=== PATIENT | female | born 1935 | race Caucasian/White ===

== ENCOUNTER 2020-03-09 12:46 | Outpatient (CLI) | payer MEDICARE, OTHER, SELFPAY ==
--- NOTE | 2020-03-09 13:10 | MM_ITS ---
WS: [id number] BILATERAL SCREENING DIGITAL MAMMOGRAM WITH CAD HISTORY: SCREENING COMPARISON: 01/29/2019 and 01/23/2018 Bilateral CC and MLO views submitted. Computer aided detection analyzed. Breast composition: There are scattered areas of fibroglandular density. No suspicious masses, microc alcifications or architectural distortion. Benign vascular calcifications in each breast. MM/[id number] IMPRESSION: BI-RADS: 2-Benign FOLLOW UP: 1 Year Follow-up
== END 2020-03-09 12:47 | disposition home or self-care (01) ==
PROVIDERS: PCP Family Medicine; Visit Provider Family Medicine
DX: Z12.31 Encounter for screening mammogram for malignant neoplasm of breast (principal)
CPT/HCPCS: 77067

== ENCOUNTER → 2020-07-13 10:54 | Outpatient (BNVA) | payer MEDICARE, OTHER, SELFPAY | PROVIDERS: PCP Family Medicine; Visit Provider Specialist | DX: M17.11 Unilateral primary osteoarthritis, right knee (principal); M25.551 Pain in right hip; M25.561 Pain in right knee; Z96.641 Presence of right artificial hip joint | CPT/HCPCS: 73502; 73560; 73565 ==

== ENCOUNTER 2021-03-10 08:19 | Outpatient (CLI) | payer MEDICARE, OTHER, SELFPAY ==
--- NOTE | 2021-03-10 08:28 | MM_ITS ---
WS: [id number] BILATERAL DIGITAL SCREENING MAMMOGRAPHY WITH CAD CLINICAL INFORMATION: SCREENING HISTORY: Screening mammogram. No current complaints. COMPARISON: March 09, 2020 TECHNIQUE: Bilateral CC and MLO views. FINDINGS: Scattered fibroglandular densities bilaterally. No suspicious focal mass, asymmetry, calcifications, or architectural distortion. No evidence of malignancy. Vascular calcification. Punctate calcificatio n. MM/[id number] IMPRESSION: BI-RADS: 2-Benign FOLLOW UP: 1 Year Follow-up Recommend return to annual screening mammography.
== END 2021-03-10 08:20 | disposition home or self-care (01) ==
LOC: RADSHAW 08:26
PROVIDERS: PCP Family Medicine; Visit Provider Family Medicine
DX: Z12.31 Encounter for screening mammogram for malignant neoplasm of breast (principal)
CPT/HCPCS: 77067

== ENCOUNTER → 2021-12-30 08:15 | Outpatient (BNVA) | payer MEDICARE, OTHER, SELFPAY | PROVIDERS: PCP Family Medicine; Visit Provider Specialist | DX: Z96.641 Presence of right artificial hip joint (principal); W18.30XA Fall on same level, unspecified, initial encounter; M17.11 Unilateral primary osteoarthritis, right knee | CPT/HCPCS: 20610; 73502; 99213; J1100; J2795; J3301 ==

== ENCOUNTER 2022-03-14 12:07 | Outpatient (CLI) | payer MEDICARE, OTHER, SELFPAY ==
--- NOTE | 2022-03-14 12:53 | MM_ITS ---
WS: [id number] BILATERAL 2-D DIGITAL SCREENING MAMMOGRAPHY WITH CAD CLINICAL INFORMATION: SCREENING HISTORY: Screening mammogram. No current complaints. COMPARISON: March 10, 2021 TECHNIQUE: Bilateral CC and MLO views. FINDINGS: Scattered fibroglandular densities bilaterally. No suspicious focal mass, asymmetry, calcifications, or architectural distortion. No evidence of malignancy. Vascular calcifications. A few incidental pun ctate calcifications. MM/[id number] IMPRESSION: BI-RADS: 2-Benign FOLLOW UP: 1 Year Follow-up Recommend return to annual screening mammography.
== END 2022-03-14 12:08 | disposition home or self-care (01) ==
PROVIDERS: PCP Family Medicine; Visit Provider Family Medicine
DX: Z12.31 Encounter for screening mammogram for malignant neoplasm of breast (principal)
CPT/HCPCS: 77063; 77067

== ENCOUNTER → 2022-03-31 10:31 | Outpatient (BNVA) | payer MEDICARE, OTHER, SELFPAY | PROVIDERS: PCP Family Medicine; Visit Provider Specialist | DX: M17.11 Unilateral primary osteoarthritis, right knee (principal); Z71.89 Other specified counseling | CPT/HCPCS: 20610; J1100; J2795; J3301 ==

== ENCOUNTER 2022-05-25 21:42 | Inpatient (IN) | payer MEDICARE, OTHER, SELFPAY ==
--- NOTE | 2022-05-25 21:43 | ED_ITS ---
HPI - Fall General: Chief Complaint: Fall Stated Complaint: FALL Time Seen by Provider: 05/25/22 21:43 History of Present Illness: 87-year-old lady presenting from home due to fall. She reports tripping and hitting her left arm on a microwave and then falling to the ground with head strike and left-sided pain. Unable to ambulate after. No LOC or prolonged downtime. No loss of consciousness. Patient is not on anticoagulation. Pain is sharp and aching. Moderate to severe intensity and worse with movement. No other specific changes in health, exacerbating, or alleviating factors identified. Onset (ago): minute(s) Fall from: standing Place fall occurred: home Loss of consciousness: None Prolonged down time: no Symptoms prior to fall: none Context: tripped/slipped Severity: moderate Quality: sharp and aching Associated symptoms-after fall: Reports difficulty walking and other Review of Systems General: Reports: 10 or more systems reviewed and unremarkable except in HPI and below Neuro: Reports: difficulty walking PFSH ED PFSH: Medical History (Updated 05/31/22 @ 00:00 by KATHLEEN Parish) Appendicitis Closed displaced fracture of left femoral neck Fall from ground level Hypertension Hypokalemia Leg edema, left Primary osteoarthritis of right knee Skin tear Thyroid disease Surgical History (Updated 05/26/22 @ 10:40 by Jeanie Perdomo MD) H/O hysterectomy with oophorectomy History of tonsillectomy and adenoidectomy Status post hip hemiarthroplasty Family History Mother Cancer Father Stroke Social History Smoking and tobacco status: never smoked Alcohol intake: never Physical Exam Const: COMMON NORMALS: alert GENERAL APPEARANCE: cooperative and well developed HENMT: COMMON NORMALS: normocephalic and atraumatic HEAD & SCALP: normocephalic and atraumatic THROAT: posterior oropharynx normal OTHER: No jim signs or raccoon eyes. No hemotympanum. No otorrhea or rhinorrhea. Jaw alignment normal. Dentition baseline. No obvious bony step-offs. No septal hematoma. No evidence of ocular entrapment. Eye: COMMON NORMALS: conjunctivae normal CONJUNCTIVA: Yes conjunctivae normal SCLERA: sclerae normal Neck/C-Spine: COMMON NORMALS: supple GENERAL: Yes trachea midline Chest: OTHER: Sternal region tenderness to palpation. Resp: COMMON NORMALS: clear to auscultation bilaterally EFFORT & INSPECTION: Yes able to speak in complete sentences AUSCULTATION: clear to auscultation bilaterally Cardio: COMMON NORMALS: regular rhythm RATE: tachycardic RHYTHM: regular rhythm GI: COMMON NORMALS: Soft to palpation PALPATION: Yes Soft to palpation, Yes Tenderness to palpation present (GI), No Guarding due to palpation present (GI) and No Rigid due to palpation Extremity: NARRATIVE EXTREMITY EXAM: Left hip tenderness to palpation. Shortened and internally rotated. Tender to palpation. Large irregular skin tear in the left upper extremity. Distal CMS intact x4 GENERAL: Yes normal exam except as noted and No edema Neuro: COMMON NORMALS: moves all extremities SENSORIUM/ORIENTATION: Yes alert and No Orientation impaired Psych: COMMON NORMALS: mental status grossly normal and Normal thought process present THOUGHT PROCESS: Normal thought process present Procedures Laceration Laceration 1: Site: upper extremity Side (If applicable): left Size (cm): 6 Description: flap, irregular and other (Skin tear) Skin layer closed with: other (Steri-Strips) Course Vital Signs: Vital signs: Vital Signs Temperature 98.4 F 05/30/22 08:26 Pulse Rate 78 05/30/22 15:06 Respiratory Rate 18 05/30/22 08:26 Blood Pressure 160/79 05/30/22 08:26 Pulse Oximetry 98 05/30/22 15:06 Oxygen Delivery Me thod 05/30/22 09:27 Oxygen Flow Rate 3 05/28/22 22:00 MDM - Fall Medical Decision Making 87-year-old lady presented due to fall with hip pain. Exam as above. Head to toe exam performed. EKG notable for sinus rhythm with mild irregularity, normal axis and intervals, mild nonspecific ST segment abnormalities, no STEMI. No significant hematologic abnormalities, metabolic panel with perhaps mild evidence of dehydration. Given physical exam CT imaging is appropriate. CT head negative for acute intracranial hemorrhage or mass, negative cervical spine CT for traumatic injury. CT chest abdomen pelvis with chronic T11 fracture and a femoral neck fracture on the left. Incidental findings discussed with patient. Skin tear repaired with Steri-Strips after cleaning, skin layers likely nonviable however to find some degree of protection. Dressing applied. Patient treated with analgesia and Tdap updated. Discussed with orthopedics. Most likely etiology of patient's symptoms is left femoral neck fracture. This is closed injury and patient is neurovascularly intact. The results of ED evaluation were discussed with the patient including plan for admission due to requirement for level of care not available if discharged to prevent significant worsening/deterioration. Patient agreeable with plan. Discussed with hospitalist service who was agreeable to admit patient. Medical Records I reviewed the patient's medical records. Lab Data I reviewed the patient's lab results. 05/25/22 22:05 05/25/22 22:05 Radiology Impressions Cervical Spine CT 05/25/22 21:54 IMPRESSION: No acute fracture or subluxations. Chest/Abdomen/Pelvis CT 05/25/22 21:54 IMPRESSION: 1. No significant chest findings. 2. Chronic T11 fracture IMPRESSION: 1. Acute or recent left femoral neck fracture. 2. Bilateral adrenal adenomas. 3. Other chronic findings as described. COMMENTS: Consistent with the [employer]'s Incidental Findings Committee white paper (J Am Danyelle Radiol 2018): Any incidental renal lesion less than 1 cm or classified as too small to characterize, or any incidental cystic renal lesion characterized as simple-appearing, is likely benign. No follow-up imaging is recommended for these lesions per consensus recommendations based on imaging criteria. Head CT 05/25/22 21:54 IMPRESSION: No acute intracranial pathology. Hip/Pelvis X-Ray 05/25/22 21:54 IMPRESSION: 1. Left hip basicervical fracture with impaction. 2. Scattered vascular calcifications. Humerus X-Ray 05/25/22 21:54 IMPRESSION: 1. Negative for fracture or dislocation. 2. Severe glenohumeral joint osteoarthritis. Hip X-Ray 05/26/22 15:38 IMPRESSION: Expected postoperative appearance of the left hip. No apparent complications. Laboratory Results WBC 6.9 10^3/uL (4.0-10.0) 05/25/22 22:05 RBC 4.00 10^6/uL (4.1-5.3) L 05/25/22 22:05 Hgb 12.1 g/dL (11.5-15.3) 05/25/22 22:05 Hct 38.3 % (37.0-47.0) 05/25/22 22:05 MCV 95.8 fl (81-99) 05/25/22 22:05 MCH 30.3 pg (28.0-34.0) 05/25/22 22:05 MCHC 31.6 g/dL (30.0-36.0) 05/25/22 22:05 RDW 13.2 % (12.1-15.1) 05/25/22 22:05 Plt Count 272 10^3/cmm (130-400) 05/25/22 22:05 MPV 9.4 fL (7.4-10.4) 05/25/22 22:05 Neut % (Auto) 62.1 % 05/25/22 22:05 Lymph % (Auto) 28.3 % 05/25/22 22:05 Jack % (Auto) 6.8 % 05/25/22 22:05 Eos % (Auto) 1.0 % 05/25/22 22:05 Baso % (Auto) 0.6 % 05/25/22 22:05 Neut # (Auto) 4.29 10^3/uL (1.8-7.7) 05/25/22 22:05 Lymph # (Auto) 2.0 10^3/uL (0.8-4.8) 05/25/22 22:05 Jack # (Auto) 0.5 10^3/uL (0.2-0.9) 05/25/22 22:05 Eos # (Auto) 0.1 10^3/uL (0.0-0.8) 05/25/22 22:05 Baso # (Auto) 0.0 10^3/uL (0.0-0.1) 05/25/22 22:05 Nucleated RBC % (auto) 0 % 05/25/22 22:05 Nucleated RBCs # 0.0 /100WBC 05/25/22 22:05 Sodium 134 mmol/L (136-145) L 05/25/22 22:05 Potassium 4.3 mmol/L (3.5-5.1) 05/25/22 22:05 Chloride 96 mmol/L (98-107) L 05/25/22 22:05 Carbon Dioxide 25 mmol/L (22-29) 05/25/22 22:05 Anion Gap 17.3 (5-19) 05/25/22 22:05 BUN 25 mg/dL (8-23) H 05/25/22 22:05 Creatinine 0.5 mg/dL (0.5-0.9) 05/25/22 22:05 GFR Calculation Not Reportable 05/25/22 22:05 Glucose 151 mg/dL (65-115) H 05/25/22 22:05 Calculated Osmolality 285 mOsm/kg (285-295) 05/25/22 22:05 Calcium 9.2 mg/dL (8.5-10.5) 05/25/22 22:05 Total Bilirubin 0.3 mg/dL (0.15-1.2) 05/25/22 22:05 AST 32 U/L (0-32) 05/25/22 22:05 ALT 18 U/L (0-33) 05/25/22 22:05 Alkaline Phosphatase 84 U/L (35-105) 05/25/22 22:05 Total Protein 7.5 g/dL (6.6-8.7) 05/25/22 22:05 Albumin 4.4 g/dL (3.5-5.2) 05/25/22 22:05 Globulin 3.1 g/dL (1.3-4.6) 05/25/22 22:05 Discharge Plan Discharge Patient Disposition: Admitted As Inpatient Admit Provider: Ella Sullivan Clinical Impression: Closed displaced fracture of left femoral neck, Skin tear Condition: Stable Coding Level of Care Code ED Quality Compliance Consultant for Rosalinda Hernandez
[2022-05-25 21:44] VITALS: BMI 22.2
[2022-05-25 21:49] VITALS: BP 185/81; PULSE 105; RESP 16; TEMP 36.8; O2SAT 95
--- NOTE | 2022-05-25 21:54 | ECG_ITS ---
[facility] Test Date: 2022-05-25 Pat Name: Yulia Richard Department: Room: Gender: Female [facility]: : 1935 Requested By: Gil Webb Order Number: [id number] Celeste MD: Catherine Lopez M.D. Measurements Intervals Clyo Rate: 95 P: 49 DC: 173 QRS: 45 QRSD: 105 T: 30 QT: 329 QTc: 414 Interpretive Statements SINUS RHYTHM WITH OCCASIONAL SUPRAVENTRICULAR PREMATURE COMPLEXES MODERATE ST DEPRESSION [0.05+ mV ST DEPRESSION] Compared to ECG 07/25/2017 13:23:45 ST (T wave) deviation now present Electronically Signed On 05-26-2022 0:13:35 TICK SEWER by Catherine Lopez M.D. [email or web address]
--- NOTE | 2022-05-25 21:54 | CTR_ITS ---
PROCEDURE INFORMATION: Exam: CT Head Without Contrast Exam date and time: 05/25/2022 10:23 PM Age: 87 years old Clinical indication: Injury or trauma; Blunt trauma (contusions or hematomas); Patient HX: Fall at home. Struck head on the floor. C/O head, neck, left chest wall, and left hip pain. ; Additional info: Fall, headstrike TECHNIQUE: Imaging protocol: Computed tomography of the head without contrast. Radiation optimization: All CT scans at this facility use at least one of these dose optimization techniques: automated exposure control; mA and/or kV adjustment per patient size (includes targeted exams where dose is matched to clinical indication); or iterative reconstruction. Other protocol: This patient has received 2 known CTs and 0 known cardiac nuclear medicine studies in the 12 months prior to the current study. COMPARISON: CT Head wo IV contrast* [id number] 2014-10-11 18:29 RADIATION DOSE METRICS: Total DLP (mGy-cm): 1043.38 FINDINGS: Brain: Mild diffuse cerebral volume loss and chronic low attenuation in the white matter. No cerebral hemorrhage, midline shift, mass, or fluid collection. Small chronic left putaminal lacunar infarct. Cerebral ventricles: Cavum septum pellucidum incidentally noted. Paranasal sinuses: Visualized sinuses are unremarkable. No fluid levels. Mastoid air cells: Visualized mastoid air cells are well aerated. Bones/joints: Unremarkable. No acute fracture. Soft tissues: Unremarkable. CT/CT head wo con* [id number] IMPRESSION: No acute intracranial pathology.
--- NOTE | 2022-05-25 21:54 | CTR_ITS ---
PROCEDURE INFORMATION: Exam: CT Chest With Contrast; Diagnostic Exam date and time: 05/25/2022 10:32 PM Age: 87 years old Clinical indication: Injury or trauma; Lower; Blunt trauma (contusions or hematomas); Prior surgery; Surgery type: Right hemanth; Patient HX: Fall at home. Struck head on the floor. C/O head, neck, left chest wall, and left hip pain. ; Additional info: Fall, L chest/abd pain TECHNIQUE: Imaging protocol: Diagnostic computed tomography of the chest with contrast. Radiation optimization: All CT scans at this facility use at least one of these dose optimization techniques: automated exposure control; mA and/or kV adjustment per patient size (includes targeted exams where dose is matched to clinical indication); or iterative reconstruction. Contrast material: OMNI 350; Contrast volume: 75 ml; Contrast route: INTRAVENOUS (IV); Other protocol: This patient has received 2 known CTs and 0 known cardiac nuclear medicine studies in the 12 months prior to the current study. COMPARISON: None relevant RADIATION DOSE METRICS: Total DLP (mGy-cm): 740.5 FINDINGS: Lungs: The lungs are clear and free of effusion. No pneumonia or mass. Overall lung architecture is normal. Incidental linear atelectasis in the right lower lobe. Pleural spaces: Unremarkable. No pneumothorax. No pleural effusion. Heart: The heart is moderately enlarged. Coronary arteries: There is moderate calcified plaque in the coronary arteries. Lymph nodes: Unremarkable. No enlarged lymph nodes. Vasculature: The thoracic aorta is normal in size. Bones/joints: A T11 30% superior endplate fracture is likely chronic as there is no surrounding inflammation. Soft tissues: Unremarkable. PROCEDURE INFORMATION: Exam: CT Abdomen And Pelvis With Contrast Exam date and time: 05/25/2022 10:32 PM Age: 87 years old Clinical indication: Injury or trauma; Lower; Blunt trauma (contusions or hematomas); Prior surgery; Surgery type: Right hemanth; Patient HX: Fall at home. Struck head on the floor. C/O head, neck, left chest wall, and left hip pain. ; Additional info: Fall, L chest/abd pain TECHNIQUE: Imaging protocol: Computed tomography of the abdomen and pelvis with contrast. Radiation optimization: All CT scans at this facility use at least one of these dose optimization techniques: automated exposure control; mA and/or kV adjustment per patient size (includes targeted exams where dose is matched to clinical indication); or iterative reconstruction. Contrast material: OMNI 350; Contrast volume: 75 ml; Contrast route: INTRAVENOUS (IV); Other protocol: This patient has received 2 known CTs and 0 known cardiac nuclear medicine studies in the 12 months prior to the current study. COMPARISON: CR (PELVIS, ) 05/25/2022 10:14 PM RADIATION DOSE METRICS: Total DLP (mGy-cm): 740.5 FINDINGS: Liver: Normal. No mass. Gallbladder and bile ducts: The gallbladder is surgically absent. Pancreas: Normal. No ductal dilation. Spleen: Normal. No splenomegaly. Adrenal glands: 1.7 cm fatty left adrenal mass is unchanged. Several fatty right adrenal masses are unchanged up to 2.1 cm. Kidneys and ureters: 1.9 cm simple cyst in the right lower renal pole. Stomach and bowel: Unremarkable. No obstruction. No mucosal thickening. Appendix: No evidence of appendicitis. Intraperitoneal space: Unremarkable. No free air. No significant fluid collection. Vasculature: Unremarkable. No abdominal aortic aneurysm. Lymph nodes: Unremarkable. No enlarged lymph nodes. Urinary bladder: Unremarkable as visualized. Reproductive: Unremarkable as visualized. Bones/joints: Acute or recent left femoral neck fracture with angulation. A right total hip arthroplasty is partially visualized but the visualized portion is intact. The ribs and thoracic spine are intact. Chronic healed fractures of the left rami. Soft tissues: Unremarkable. CT/CT chest abdpel w/*[id number] IMPRESSION: 1. No significant chest findings. 2. Chronic T11 fracture IMPRESSION: 1. Acute or recent left femoral neck fracture. 2. Bilateral adrenal adenomas. 3. Other chronic findings as described. COMMENTS: Consistent with the [employer]'s Incidental Findings Committee white paper (J Am Danyelle Radiol 2018): Any incidental renal lesion less than 1 cm or classified as too small to characterize, or any incidental cystic renal lesion characterized as simple-appearing, is likely benign. No follow-up imaging is recommended for these lesions per consensus recommendations based on imaging criteria.
--- NOTE | 2022-05-25 21:54 | XRR_ITS ---
PROCEDURE INFORMATION: Exam: XR Left Hip Exam date and time: 05/25/2022 10:14 PM Age: 87 years old Clinical indication: Hip pain; Left hip; Additional info: Fall, hip pain TECHNIQUE: Imaging protocol: Radiologic exam of the Left hip. Views: 2 or 3 views hip with pelvis when performed. COMPARISON: CR XR pelvis 1-2V* [id number] 07/25/2017 7:00 PM FINDINGS: Bones/joints: Left hip basicervical fracture with impaction. Soft tissues: Unremarkable. Vasculature: Scattered vascular calcifications. XR/XR hip LT 2-3V wo/w pel* [id number] IMPRESSION: 1. Left hip basicervical fracture with impaction. 2. Scattered vascular calcifications.
--- NOTE | 2022-05-25 21:54 | XRR_ITS ---
PROCEDURE INFORMATION: Exam: XR Left Humerus Exam date and time: 05/25/2022 10:12 PM Age: 87 years old Clinical indication: Pain; Upper arm; Left; Additional info: Fall, mid-distal lateral pain TECHNIQUE: Imaging protocol: Radiologic exam of the Left humerus. Views: 2 or more views. COMPARISON: CR XR ribs LT mn 3V w CXR1V [id number] 02/06/2018 2:27 PM FINDINGS: Bones/joints: Severe glenohumeral joint osteoarthritis. Soft tissues: Normal. XR/[place] [id number] IMPRESSION: 1. Negative for fracture or dislocation. 2. Severe glenohumeral joint osteoarthritis.
--- NOTE | 2022-05-25 21:54 | CTR_ITS ---
PROCEDURE INFORMATION: Exam: CT Cervical Spine Without Contrast Exam date and time: 05/25/2022 10:27 PM Age: 87 years old Clinical indication: Injury or trauma; Blunt trauma; Patient HX: Fall at home. Struck head on the floor. C/O head, neck, left chest wall, and left hip pain. TECHNIQUE: Imaging protocol: Computed tomography of the cervical spine without contrast. Radiation optimization: All CT scans at this facility use at least one of these dose optimization techniques: automated exposure control; mA and/or kV adjustment per patient size (includes targeted exams where dose is matched to clinical indication); or iterative reconstruction. Other protocol: This patient has received 2 known CTs and 0 known cardiac nuclear medicine studies in the 12 months prior to the current study. COMPARISON: 1. CT head wo con* [id number] 2022-05-25 22:23 2. CR (UP EXM, ) 2022-05-25 22:12 RADIATION DOSE METRICS: Total DLP (mGy-cm): 255.97 FINDINGS: Bones/joints: Mild cervical degenerative alignment abnormalities with maintained vertebral body heights. No acute fractures. Moderate cervical facet arthropathy. C3-C4 small central disc extrusion. Mild spinal and mild moderate foraminal stenosis. Lungs: Lung apices are normal. Vasculature: Mild carotid atherosclerosis. Soft tissues: Unremarkable. CT/CT cervical spin wo con* [id number] IMPRESSION: No acute fracture or subluxations.
[2022-05-25 22:13] LABS: Basophils % 0.6 %; Eosinophils # 0.1 10^3/uL (0.0-0.8); Hematocrit 38.3 % (37.0-47.0); Hemoglobin 12.1 g/dL (11.5-15.3); Lymphocytes % 28.3 %; Mean Corpuscular HGB Conc 31.6 g/dL (30.0-36.0); Mean Corpuscular Hemoglobin 30.3 pg (28.0-34.0); Mean Corpuscular Volume 95.8 fl (81-99); Mean Platelet Volume 9.4 fL (7.4-10.4); Monocytes # 0.5 10^3/uL (0.2-0.9); Monocytes % 6.8 %; Neutrophils # 4.29 10^3/uL (1.8-7.7); Neutrophils % 62.1 %; Nucleated Red Blood Cells % 0 %; Platelet Count 272 10^3/cmm (130-400); Red Cell Distribution Width 13.2 % (12.1-15.1); White Blood Count 6.9 10^3/uL (4.0-10.0)
[2022-05-25] MEDS: tetanus-dipt-pertussis 0.5 mL SDV IM (22:15)
[2022-05-25 22:16] VITALS: RESP 22; O2SAT 92
[2022-05-25] MEDS: fentaNYL 50 mcg/mL INJ 2mL 25 MCG IVP (22:16)
[2022-05-25 22:29] LABS: Alanine Aminotransferase 18 U/L (0-33); Albumin Level 4.4 g/dL (3.5-5.2); Alkaline Phosphatase 84 U/L (35-105); Blood Urea Nitrogen 25 mg/dL (8-23); Calcium 9.2 mg/dL (8.5-10.5); Carbon Dioxide 25 mmol/L (22-29); Chloride 96 mmol/L (98-107); Globulin 3.1 g/dL (1.3-4.6); Glucose 151 mg/dL (65-115); Osmolality Calculated 285 mOsm/kg (285-295); Sodium 134 mmol/L (136-145); Total Bilirubin 0.3 mg/dL (0.15-1.2); Total Protein 7.5 g/dL (6.6-8.7)
[2022-05-25] MEDS: iohexol 350 mg/mL 500 mL Btl (per mL) IV (22:36)
[2022-05-25 22:45] LABS: Anion Gap 17.3 (5-19); Aspartate Amino Transferase 32 U/L (0-32); Potassium 4.3 mmol/L (3.5-5.1)
[2022-05-25 22:47] VITALS: BP 186/90; PULSE 94; RESP 22; O2SAT 92
[2022-05-25 23:54] VITALS: BP 174/85; PULSE 90; RESP 21; O2SAT 91
[2022-05-26] VITALS (21 sets, daily range): BP systolic 115–180; BP diastolic 65–105; PULSE 64–125; RESP 11–20; TEMP 36.4–37.7; O2SAT 90–100
[2022-05-26] MEDS: fentaNYL 50 mcg/mL INJ 2mL 25 MCG IVP (00:04)
[2022-05-26] MEDS: bacitracin ointment Pkt 1 EACH TOPICAL (00:15)
--- NOTE | 2022-05-26 02:14 | PM.HP ---
Providers/Chief Complaint Admitting Physician: Ella Sullivan MD Primary Care Provider: Dipika Tolbert MD Chief Complaint: FALL History of Present Illness Yulia Richard is a 87 year old female with a past medical history of hypertension, hypothyroidism, presented to the emergency room today with chief complaints of a mechanical fall while turning out her back light at home today. She denies any syncope, chest pain dyspnea or palpitations prior to the event. She had her left arm and also has been unable to walk since then. There is a laceration on the left arm which is currently under dressing from the ER. Hip imaging notes femoral fracture. She denies any recent illness, denies any fever chills abdominal pain nausea vomiting diarrhea. Review of Systems General: Reports: 10 or more systems reviewed and unremarkable except in HPI and below Const: Denies: fever(s), chills or body aches Eyes: Denies: change in vision, blurry vision or photophobia ENMT: Reports: hoarseness; Denies: throat pain, enlarged tonsils, odynophagia or nasal congestion Card: Denies: chest pain, palpitations, irregular heart rhythm, edema, swelling of feet/ankles, lightheadedness, pre-syncope, dyspnea on exertion or orthopnea Resp: Denies: dyspnea, productive cough, non-productive cough, wheezing, stridor, pain on inspiration, change in phlegm color, hemoptysis or chest congestion GI: Denies: abdominal pain, nausea, vomiting, hematemesis, coffee ground emesis, dysphagia, heartburn, diarrhea, constipation, GI cramping, change in stool character, hematochezia or melena : Denies: flank pain, difficulty voiding, dysuria, urinary frequency, urinary urgency, urinary hesitancy or hematuria Musc: Denies: neck pain, back pain, extremity pain, joint swelling, joint warmth or deformity Neuro: Denies: headache(s), numbness in extremities, weakness in extremities, sensory changes, difficulty walking, frequent falls, dizziness, vertigo, behavioral changes, Slurred speech present or seizure-like activity Psych: Denies: anxiety, depression, suicidal ideation or homicidal ideation Endo: Denies: polyuria, polydipsia, tired all the time, cold intolerance or hot flashes Felipe/Lymph: Denies: easy bruising or easy bleeding Medications/Allergies Home Medications Medication Instructions Recorded Confirmed Last Taken Type hydrochlorothiazide 12.5 mg tablet 12.5 mg PO DAILY 07/13/20 03/31/22 Unknown History levothyroxine 50 mcg capsule 50 mcg PO DAILY 07/13/20 03/31/22 Unknown History ghvupdyvwjgs-ddvilnne-rujnjh tablet 1 tab PO DAILY 07/13/20 03/31/22 Unknown History potassium chloride 10 mEq 10 meq PO DAILY 07/13/20 03/31/22 Unknown History capsule,extended release azithromycin 250 mg tablet See Rx Instructions PO .COMPLEX #6 10/14/21 03/31/22 Unknown Rx (Zithromax Z-Keith) tabs Allergies Allergy/AdvReac Type Severity Reaction Status Date / Time Penicillins Allergy ALGY-Rash Verified 03/31/22 10:38 PFSH Acute PFSH: Medical History (Updated 05/26/22 @ 05:38 by Ella Sullivan MD) Appendicitis Hypertension Thyroid disease Surgical History (Updated 05/26/22 @ 05:28 by Ella Sullivan MD) H/O hysterectomy with oophorectomy History of tonsillectomy and adenoidectomy Family History Mother Cancer Father Stroke Social History Smoking and tobacco status: never smoked Alcohol intake: never Vitals/I&O/Wt Last Vital Signs Temp 98.2 F 05/25/22 21:49 Pulse 90 05/25/22 23:54 Resp 21 H 05/25/22 23:54 BP 174/85 05/25/22 23:54 Pulse Ox 91 05/25/22 23:54 O2 Del Method 05/26/22 01:43 Weight last 48 hrs Weight 62.596 kg Physical Exam Narrative: General: No acute distress, AO x3 HEENT: PERRLA, pupils bilaterally equal and reactive, pallors not present Chest: Normal vesicular breath sounds, no added sounds, equal good air entry bilaterally CVS: S1-S2 regular, no murmurs, no tachycardia, no gallops, no rubs Abdomen: Soft, nontender, no organomegaly, bowel sounds present Neuro: No focal deficits, no facial deformity, AO x3, power 5/5 in all limbs EXT: Dressing in place over left arm, unable to move left lower extremity Urinary Catheter Management: Clay: Cath Placed During This Visit: yes Urinary Catheter Date of Insertion: 05/25/22 Urinary Catheter Time of Insertion: 23:20 Data 05/25/22 22:05 05/25/22 22:05 Other Labs: Radiology Impressions Cervical Spine CT 05/25/22 21:54 IMPRESSION: No acute fracture or subluxations. Chest/Abdomen/Pelvis CT 05/25/22 21:54 IMPRESSION: 1. No significant chest findings. 2. Chronic T11 fracture IMPRESSION: 1. Acute or recent left femoral neck fracture. 2. Bilateral adrenal adenomas. 3. Other chronic findings as described. COMMENTS: Consistent with the [employer]'s Incidental Findings Committee white paper (J Am Danyelle Radiol 2018): Any incidental renal lesion less than 1 cm or classified as too small to characterize, or any incidental cystic renal lesion characterized as simple-appearing, is likely benign. No follow-up imaging is recommended for these lesions per consensus recommendations based on imaging criteria. Head CT 05/25/22 21:54 IMPRESSION: No acute intracranial pathology. Hip/Pelvis X-Ray 05/25/22 21:54 IMPRESSION: 1. Left hip basicervical fracture with impaction. 2. Scattered vascular calcifications. Humerus X-Ray 05/25/22 21:54 IMPRESSION: 1. Negative for fracture or dislocation. 2. Severe glenohumeral joint osteoarthritis. Laboratory Results WBC 6.9 10^3/uL (4.0-10.0) 05/25/22 22:05 RBC 4.00 10^6/uL (4.1-5.3) L 05/25/22 22:05 Hgb 12.1 g/dL (11.5-15.3) 05/25/22 22:05 Hct 38.3 % (37.0-47.0) 05/25/22 22:05 MCV 95.8 fl (81-99) 05/25/22 22:05 MCH 30.3 pg (28.0-34.0) 05/25/22 22:05 MCHC 31.6 g/dL (30.0-36.0) 05/25/22 22:05 RDW 13.2 % (12.1-15.1) 05/25/22 22:05 Plt Count 272 10^3/cmm (130-400) 05/25/22 22:05 MPV 9.4 fL (7.4-10.4) 05/25/22 22:05 Neut % (Auto) 62.1 % 05/25/22 22:05 Lymph % (Auto) 28.3 % 05/25/22 22:05 [place] % (Auto) 6.8 % 05/25/22 22:05 Eos % (Auto) 1.0 % 05/25/22 22:05 Baso % (Auto) 0.6 % 05/25/22 22:05 Neut # (Auto) 4.29 10^3/uL (1.8-7.7) 05/25/22 22:05 Lymph # (Auto) 2.0 10^3/uL (0.8-4.8) 05/25/22 22:05 [place] # (Auto) 0.5 10^3/uL (0.2-0.9) 05/25/22 22:05 Eos # (Auto) 0.1 10^3/uL (0.0-0.8) 05/25/22 22:05 Baso # (Auto) 0.0 10^3/uL (0.0-0.1) 05/25/22 22:05 Nucleated RBC % (auto) 0 % 05/25/22 22:05 Nucleated RBCs # 0.0 /100WBC 05/25/22 22:05 Sodium 134 mmol/L (136-145) L 05/25/22 22:05 Potassium 4.3 mmol/L (3.5-5.1) 05/25/22 22:05 Chloride 96 mmol/L (98-107) L 05/25/22 22:05 Carbon Dioxide 25 mmol/L (22-29) 05/25/22 22:05 Anion Gap 17.3 (5-19) 05/25/22 22:05 BUN 25 mg/dL (8-23) H 05/25/22 22:05 Creatinine 0.5 mg/dL (0.5-0.9) 05/25/22 22:05 GFR Calculation Not Reportable 05/25/22 22:05 Glucose 151 mg/dL (65-115) H 05/25/22 22:05 Calculated Osmolality 285 mOsm/kg (285-295) 05/25/22 22:05 Calcium 9.2 mg/dL (8.5-10.5) 05/25/22 22:05 Total Bilirubin 0.3 mg/dL (0.15-1.2) 05/25/22 22:05 AST 32 U/L (0-32) 05/25/22 22:05 ALT 18 U/L (0-33) 05/25/22 22:05 Alkaline Phosphatase 84 U/L (35-105) 05/25/22 22:05 Total Protein 7.5 g/dL (6.6-8.7) 05/25/22 22:05 Albumin 4.4 g/dL (3.5-5.2) 05/25/22 22:05 Globulin 3.1 g/dL (1.3-4.6) 05/25/22 22:05 A&P Assessment and plan (1) Closed displaced fracture of left femoral neck: (2) Skin tear: (3) Hypertension: Plan 87-year-old lady presenting with a mechanical fall today. Left hip basicervical fracture with impaction. Orthopedics has been consulted N.p.o. for possible surgery tomorrow morning. On bedrest until orthopedics assessment. Has been consulted from the ER. Appears to be a mechanical fall. Patient denies any loss of consciousness or head injuries. Local wound care measures over the left arm Continue home medications including hydrochlorothiazide and levothyroxine Attestations Medical Necessity Statement*: Anticipate greater than 2 midnight admission for femoral neck fracture, anticipated surgery, postop care Ortho assessment, therapy assessments. Coding Level of Care Code Acute Code for Chg Fwd Moderate MDM includes risk/complexity, reviewing test results, ordering lab/other test(s), independently interpretating test(s) (not separately recorded) and discussion of management or test(s) w/ other healthcare professional Diagnoses Closed displaced fracture of left femoral neck S72.002A Skin tear Hypertension I10
[2022-05-26] MEDS: morphine 4 mg/mL SDV 1 mL 2 MG IVP ×2 (03:21→07:37)
[2022-05-26] MEDS: sodium chloride 0.9% 1,000 ML 75 ML IV ×2 (03:22→21:15)
[2022-05-26] MEDS: enoxaparin 40 mg/0.4 mL Syringe SUBCUT (03:23)
--- NOTE | 2022-05-26 04:49 | ECG_ITS ---
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 Measurements Intervals [place] Rate: 88 P: 52 DE: 175 QRS: 43 QRSD: 104 T: 43 QT: 352 QTc: 428 Interpretive Statements SINUS RHYTHM POSSIBLE INFERIOR MYOCARDIAL INFARCTION , PROBABLY OLD [30 ms Q WAVE IN II/aVF] Compared to ECG 05/25/2022 22:03:33 Myocardial infarct finding now present ST (T wave) deviation no longer present Electronically Signed On 05-27-2022 8:10:01 SLITTER HELPER by Joi Baca M.D. [id number]
[2022-05-26] MEDS: pantoprazole 40 mg SDV IVP (05:50)
[2022-05-26 06:07] LABS: Troponin(5th) Baseline 19 ng/L (0-10)
--- NOTE | 2022-05-26 07:12 | ECG_ITS ---
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 Measurements Intervals [place] Rate: 82 P: 49 AR: 180 QRS: 34 QRSD: 98 T: 33 QT: 360 QTc: 421 Interpretive Statements SINUS RHYTHM Compared to ECG 05/26/2022 04:52:47 Myocardial infarct finding no longer present Electronically Signed On 05-27-2022 8:14:23 GRINDER OUTSIDE DIAMETER by Joi Baca M.D. [id number]
[2022-05-26 08:07] LABS: Troponin 5 2HR 18.78 ng/L (0-10)
[2022-05-26 08:08] LABS: Troponin 5 2HR Delta -0.22 ABS# (0-10)
[2022-05-26] MEDS: hydroCHLOROthiazide 25 mg Tablet 12.5 MG PO (08:43)
[2022-05-26] MEDS: levothyroxine 50 mcg Tablet PO (08:44)
[2022-05-26] MEDS: pantoprazole DR 40 mg Tablet PO (08:44)
--- NOTE | 2022-05-26 10:38 | P.PN_ITS ---
Subjective Subjective: Patient is awaiting for surgical consultation She is n.p.o. On complain of active pain Patient is stating that she did something stupid and fell She is full code Currently on Doing well Clay catheter in place Patient was asking if Dr. Vega could operate on her I did tell her we will follow-up with on-call surgeon Sodium 134, potassium 4.3, creatinine is normal troponin baseline 19, EKG showi ng sinus rhythm with PVCs Vitals/I&O/Wt Last Vital Signs Temp 98.6 F 05/26/22 08:00 Pulse 84 05/26/22 08:00 Resp 18 05/26/22 08:00 BP 151/76 05/26/22 08:00 Pulse Ox 90 05/26/22 08:00 O2 Del Method 05/26/22 08:00 05/25/22 05/26/22 05/26/22 22:59 06:59 14:59 Intake Total 0 / 0 Output Total 1600 / 1600 Balance -1600 / -1600 Weight last 48 hrs Weight 62.596 kg Physical Exam Narrative: Patient is awake and alert Laying supine Currently on room air Clay catheter in place Abdomen soft S1, S2 No audible stridor or wheezing Urinary Catheter Management: Clay: Cath Placed During This Visit: yes Reason for Continuing Indwelling Catheter: Required Immobilization for Trauma or Surgery or Anesthesia Urinary Catheter Date of Insertion: 05/25/22 Urinary Catheter Time of Insertion: 23:20 Data 05/25/22 22:05 05/25/22 22:05 A&P Assessment and plan (1) Hypertension: (2) Closed displaced fracture of left femoral neck: (3) Skin tear: (4) Fall from ground level: Plan Left hip fracture N.p.o. Pain is under control Clay cath in place EKG showing sinus rhythm with PVCs No severe electrolyte abnormality Continue IV fluids and opiates Follow-up with Dr. Brito today She is hemodynamically stable She is full code We will start levothyroxine after surgery She will need rehab after her surgery Attestations Medical Necessity Statement*: Awaiting surgery Coding Level of Care Code Acute Code for Chg Fwd Diagnoses Hypertension I10 Closed displaced fracture of left femoral neck S72.002A Skin tear Fall from ground level W18.30XA
--- NOTE | 2022-05-26 11:18 | PC.CHAP ---
Pastoral Care Encounter/Spiritual Assessment Type of Contact [x] Declined life scientists visit [] Patient/Family/Request visit [] Outpatient visit [] Follow-up visit [] Physician referral [] Code/Alert [] Routine visit [] Staff referral [] Actively dying [] Patient sleeping [] Family support [] [] Out of room [] Palliative care [] [] Receiving care in room [] Pre-surgical visit [] Trauma [] Long length of stay [] ICU visit [] Other: Relational/Emotional Strength [] Patient feels connected with others/family/visitors/staff [] Distress [] Loneliness/isolation [] Abandonment Spirituality of Patient [] Person of Irma [] Attends Druze of their Irma [] Believes in Prayer [] Reads Bible or Confucianist materials [] There are Spiritual issues to be addressed Die Keeper Interventions [] Prayer [] Active listening [] Non-anxious presence [] Spiritual/emotional support [] Crisis/trauma care [] Spiritual counseling [] Bereavement support [] Provided bereavement packet [] Provided Bible/devotional materials [] Provided toy/stuffed animal, coloring book to patient or family member [] Provided Communion [] Anointing/[place] [] Salvation [] Completed spiritual assessment [] Other: Impact on Illness or Injury [] Angry [ ] Fearful [] Anxious [] Often cries [] Exhaustion [ ] Unable to work [] Unable to attend baptist [] Unable to walk/stand [] Unable to read [] Unable to drive [] Unable to eat/drink [] Unable to sleep [] Unable to be with family [] Patient intubated [] Other: Summary unable to communicate health with staff Time spent with patient 5 mins
[2022-05-26 11:38] LABS: Troponin 5 6HR 19.57 ng/L (0-10); Troponin 5 6HR Delta 0.57 ng/L (0-12)
--- NOTE | 2022-05-26 11:46 | ECG_ITS ---
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 Measurements Intervals [place] Rate: 85 P: 41 AL: 177 QRS: 38 QRSD: 99 T: 37 QT: 345 QTc: 410 Interpretive Statements SINUS RHYTHM Compared to ECG 05/26/2022 09:32:48 No significant changes Electronically Signed On 05-27-2022 8:13:34 PERSONAL SECURITY SPECIALIST by Joi Baca M.D. [id number]
--- NOTE | 2022-05-26 12:15 | ANES.PREANE2 ---
Pre-Anesthetic Assessment Height/Weight: Height 1.68 m Weight 62.596 kg Temp Pulse Resp BP Pulse Ox O2 Del Method 99.9 F H 90 18 164/75 93 05/26/22 12:06 05/26/22 12:06 05/26/22 12:06 05/26/22 12:06 05/26/22 12:06 05/26/22 12:06 Preop Diagnosis: Left bipolar hip Operation Date: 05/26/22 12:30 Proposed Procedures p Hemiarthroplasty Hip(Left) - Christopher Ba MD Familial anesthetic complications: None Was Beta Ilan taken within 24 hours: N/A Was Clonidine taken within 24 hours: N/A Last intake: Intake Last Liquid Date 05/25/22 Last Liquid Time 23:00 Last Solid Date 05/25/22 Last Solid Time 15:30 Social No alcohol and No tobacco Exam alert, oriented x 3, clear to auscultation bilaterally and regular rate & rhythm Airway Mallampati: Class II CV/HEM Hypertension Metabolic Thyroid Disease Anesthetic Plan ASA status: 3 Anesthesia: General Risk of > 500 ml blood loss (7ml/kg in children): No Other Pertinent Information Patient declining spinal block Medications/Allergies Home Medications Medication Instructions Recorded Confirmed Last Taken Type hydrochlorothiazide 12.5 mg tablet 12.5 mg PO DAILY@07/13/20 05/26/22 Unknown History potassium chloride 10 mEq 10 meq PO DAILY@92907/13/20 05/26/22 Unknown History capsule,extended release levothyroxine 50 mcg tablet 50 mcg PO DAILY@05/26/22 05/26/22 Unknown History multivit with 1 tab PO DAILY@05/26/22 05/26/22 Unknown History gagvvycf-jtcw-UL-lutein 8 mg iron-400 mcg-300 mcg tablet (Centrum Silver Women) Allergies Allergy/AdvReac Type Severity Reaction Status Date / Time Penicillins Allergy ALGY-Rash Verified 05/26/22 08:48 Current Medications Generic Name Dose Route Start Last Admin Trade Name Freq PRN Reason Stop Dose Admin Enoxaparin Sodium 40 mg 05/26/22 02:15 05/26/22 03:23 Enoxaparin 40 Mg/0.4 Ml Syringe SUBCUT 40 mg Q24H CASE Administration Hydrochlorothiazide 12.5 mg 05/26/22 09:00 05/26/22 08:43 Hydrochlorothiazide 25 Mg Tablet PO 12.5 mg DAILY CASE Administration Sodium Chloride 1,000 mls @ 75 mls/hr 05/26/22 02:15 05/26/22 03:22 Sodium Chloride 0.9% IV 75 mls/hr .[id number] CASE Administration Levothyroxine Sodium 50 mcg 05/26/22 09:00 05/26/22 08:44 Levothyroxine 50 Mcg Tablet PO 50 mcg DAILY CASE Administration Morphine Sulfate 2 mg 05/26/22 02:12 05/26/22 07:37 Morphine 4 Mg/Ml Sdv 1 Ml IVP 2 mg Q4H PRN Administration SEVERE PAIN Pantoprazole Sodium 40 mg 05/26/22 09:00 05/26/22 08:[address] 40 Mg Tablet PO 40 mg DAILY CASE Administration PFSH Anesthesia Medical History (Updated 05/26/22 @ 10:40 by Jeanie Perdomo MD) Appendicitis Hypertension Primary osteoarthritis of right knee Thyroid disease Surgical History (Updated 05/26/22 @ 10:40 by Jeanie Perdomo MD) H/O hysterectomy with oophorectomy History of tonsillectomy and adenoidectomy Status post hip hemiarthroplasty Family History Mother Cancer Father Stroke Social History Smoking and tobacco status: never smoked Alcohol intake: never Data Anesthesia 05/25/22 22:05 05/25/22 22:05 Short CBC 05/25/22 Range/Units 22:05 WBC 6.9 (4.0-10.0) 10^3/uL Hgb 12.1 (11.5-15.3) g/dL Hct 38.3 (37.0-47.0) % MCV 95.8 (81-99) fl Plt Count 272 (130-400) 10^3/cmm Neut % (Auto) 62.1 % Neut # (Auto) 4.29 (1.8-7.7) 10^3/uL BMP 05/25/22 22:05 Sodium 134 L Potassium 4.3 Chloride 96 L Carbon Dioxide 25 BUN 25 H Creatinine 0.5 Glucose 151 H Calcium 9.2 Cardiac Enzymes 05/26/22 05/26/2205/26/23 Range/Units 05:43 07:40 11:08 Troponin T Baseline 19 H (0-10) ng/L Troponin T 120 Minute 18.78 H (0-10) ng/L Delta Troponin T -0.22 L (0-10) ABS# Troponin T Hi Sens 6Hr 19.57 H (0-10) ng/L Troponin T Hi Sens 6Hr Delta 0.57 (0-12) ng/L Liver Function 05/25/22 Range/Units 22:05 Total Bilirubin 0.3 (0.15-1.2) mg/dL AST 32 (0-32) U/L ALT 18 (0-33) U/L Alkaline Phosphatase 84 (35-105) U/L Albumin 4.4 (3.5-5.2) g/dL Cardiac Studies: No Data to Display
[2022-05-26] MEDS: sodium chloride 0.9% 1,000 ML 30 ML IV (12:25)
--- NOTE | 2022-05-26 13:17 | PC.NURSE ---
surgery Pt taken down to surgery in her bed.
--- NOTE | 2022-05-26 13:27 | P.CONIM_ITS ---
Providers/Reason For Consult Consulting Physician/Specialty*: Christopher Ba MD; orthopedic surgery Reason for Consult*: Left femoral neck fracture Attending Physician: Jeanie Perdomo MD Primary Care Provider: Dipika Tolbert MD History of Present Illness History of Present Illness Yulia Richard is a 87 year old female sustained a mechanical fallwhile turning off her back porch light at home. She describes immediate pain in her left hip and inability to bear weight. She was seen in our emergency room radiographs revealed a left femoral neck fracture. She is admitted to medicine has been cleared for surgery. Medications/Allergies Home Medications Medication Instructions Recorded Confirmed Last Taken Type hydrochlorothiazide 12.5 mg tablet 12.5 mg PO DAILY@07/13/20 05/26/22 Unknown History potassium chloride 10 mEq 10 meq PO DAILY@92907/13/20 05/26/22 Unknown History capsule,extended release levothyroxine 50 mcg tablet 50 mcg PO DAILY@05/26/22 05/26/22 Unknown History multivit with 1 tab PO DAILY@05/26/22 05/26/22 Unknown History shzcbmby-tldw-PJ-lutein 8 mg iron-400 mcg-300 mcg tablet (Centrum Silver Women) Allergies Allergy/AdvReac Type Severity Reaction Status Date / Time Penicillins Allergy ALGY-Rash Verified 05/26/22 08:48 Current Medications Generic Name Dose Route Start Last Admin Trade Name Freq PRN Reason Stop Dose Admin Enoxaparin Sodium 40 mg 05/26/22 02:15 05/26/22 03:23 Enoxaparin 40 Mg/0.4 Ml Syringe SUBCUT 40 mg Q24H CASE Administration Hydrochlorothiazide 12.5 mg 05/26/22 09:00 05/26/22 08:43 Hydrochlorothiazide 25 Mg Tablet PO 12.5 mg DAILY CASE Administration Sodium Chloride 1,000 mls @ 75 mls/hr 05/26/22 02:15 05/26/22 03:22 Sodium Chloride 0.9% IV 75 mls/hr .[id number] CASE Administration Sodium Chloride 1,000 mls @ 30 mls/hr 05/26/22 12:15 05/26/22 12:25 Sodium Chloride 0.9% IV 05/27/22 12:14 30 mls/hr .Q24H CASE Administration Levothyroxine Sodium 50 mcg 05/26/22 09:00 05/26/22 08:44 Levothyroxine 50 Mcg Tablet PO 50 mcg DAILY CASE Administration Morphine Sulfate 2 mg 05/26/22 02:12 05/26/22 07:37 Morphine 4 Mg/Ml Sdv 1 Ml IVP 2 mg Q4H PRN Administration SEVERE PAIN Pantoprazole Sodium 40 mg 05/26/22 09:00 05/26/22 08:[address] 40 Mg Tablet PO 40 mg DAILY CASE Administration PFSH Acute PFSH: Medical History (Updated 05/26/22 @ 10:40 by Jeanie Perdomo MD) Appendicitis Hypertension Primary osteoarthritis of right knee Thyroid disease Surgical History (Updated 05/26/22 @ 10:40 by Jeanie Perdomo MD) H/O hysterectomy with oophorectomy History of tonsillectomy and adenoidectomy Status post hip hemiarthroplasty Family History Mother Cancer Father Stroke Social History Smoking and tobacco status: never smoked Alcohol intake: never Vitals/I&O/Wt Last Vital Signs Temp 99.9 F H 05/26/22 12:06 Pulse 90 05/26/22 12:06 Resp 18 05/26/22 12:06 BP 164/75 05/26/22 12:06 Pulse Ox 93 05/26/22 12:06 O2 Del Method 05/26/22 12:06 05/25/22 05/26/22 05/26/22 22:59 06:59 14:59 Intake Total 0 / 0 Output Total 1600 / 1600 Balance -1600 / -1600 Weight last 48 hrs Weight 138 lb Physical Exam Narrative: Thin elderly female. She has clear shortening and external rotation of the left hip. She has pain with motion of the left hip. Palpable left dorsalis pedis pulse. Will flex extend her toes and her ankles without any motor deficits Sensation is intact in the left foot. Dressing is present on the left arm. Urinary Catheter Management: Clay: Cath Placed During This Visit: yes Reason for Continuing Indwelling Catheter: Required Immobilization for Trauma or Surgery or Anesthesia Urinary Catheter Date of Insertion: 05/25/22 Urinary Catheter Time of Insertion: 23:20 Data 05/25/22 22:05 02/08/23 22:05 Xray Ortho: My impression: Radiograph of the left hip are reviewed revealing a displaced basicervical left femoral neck fracture. A&P Assessment and plan (1) Closed displaced fracture of left femoral neck: I discussed options with the patientt.. I told them possible treatments for displaced femoral neck fracture would include nonoperative treatment, open reduction internal fixation, or hemiarthroplasty. I told them without treatment the patient would experience ongoing of pain that would limit mobility. This would require pain medications and place her at medical risks due to prolonged periods of bed rest. I discussed the possibility of open reduction internal fixation with pins. I warned them that for displaced fractures of the risk of nonunion and malunion is exceptionally high. In addition there is a high likelihood that the blood applied to the femoral head has been disrupted and that even with successful stabilization of the fracture the femoral head will go on to . I finally discussed the possibility of hemiarthroplasty. I think this would give the patient the greatest chance of being immediately mobilized. I discussed risk of a bleeding and a possible need for blood products. I discussed risk of deep venous thromboses and pulmonary emboli and the need for anticoagulation. I discussed the use of the TXA that may be utilized to diminish blood loss. I discussed risk of component failure and loosening that c ould require revision. I discussed the risk of dislocation and a bipolar arthroplasty which is quite unlikely. After a long discussion of options they agree to hemiarthroplasty of the hip. I told him ultimately the patient will likely require senior care placement. Coding Level of Care Code Acute Code for [facility] Diagnoses Closed displaced fracture of left femoral neck S72.002A
[2022-05-26] MEDS: ceFAZolin 2,000 MG in sodium chloride 0.9% (plus) 50 ML 100 MG IV ×2 (13:47→21:17)
[2022-05-26] MEDS: tranexamic acid 1,000 mg/10mL SDV 1000 MG IV (14:10)
--- NOTE | 2022-05-26 15:35 | P.OP_ITS ---
Operative Report Date of procedure: May 26, 2022 Pre-op diagnosis: Preop Diagnosis Left displaced femoral neck fracture Post-op diagnosis: same Procedure done: Hemiarthroplasty right hip Implants: [place] 1) Accolade cemented stem, size 4 2) 45 bipolar femoral head 3) 28mm/-4 neck length femoral head Pathology: none sent Surgeon: Christopher Ba Anesthesia: General Estimated blood loss (mL): 200 Findings: The patient had the previously described displaced basicervical fracture of the femoral neck Disposition: PACU Procedure: The patient was taken to the operating room and a a general anesthesia was provided by the anesthesia service. They were given 2 g of Ancef and 1 g of tranexamic acid and positioned in the lateral position with the hip exposed. A 10 cm long incision was made over the greater trochanter with a scalpel blade. Dissection was carried down through the fascia chantel to the greater trochanter. The anterior two thirds of gluteus medius and minimus were elevated off the greater trochanter with electrocautery. The capsule was divided T like fashion. The hip was externally rotated and the neck brought up into the wound. An oscillating saw was really used to resect the neck just above the level of the lesser trochanter. The femoral head was removed and the acetabulumt sized to a 45 mm bipolar head. Sequential reaming and broaching of the canal was accomplished up to a size 4. A distal cement restrictor was placed in the canal cleaned with pulsatile lavage and a brush. Pressurized cement was then passed down the canal. A size 4 [place] Accolade cemented stem was cemented into place. A trial reduction with a -4 mm neck provided excellent stability. The final head and neck were placed and the hip reduced. The anterior capsule were reapproximated with 1 Ethibond. The gluteus medius and minimus were repaired t hrough the greater trochanter with 5 Ethibond and reinforced with 1 Ethibond. The fascia chantel was closed with 1 Stratafix. The subcutaneous tissues were closed with 2-0 Stratafix. The skin was closed with a running 4-0 Stratafix. The incision was covered with a Prineo dressing. Sterile Opsitedressings were applied. The patient was placed in abduction pillow and taken recovery room in stable condition.
--- NOTE | 2022-05-26 15:38 | XRR_ITS ---
PROCEDURE INFORMATION: Exam: XR Left Hip Exam date and time: 05/26/2022 4:48 PM Age: 87 years old Clinical indication: Device placement; Other: Left bipolar arthroplasty; Prior surgery; Surgery date: Post-operative (0-2 days) TECHNIQUE: Imaging protocol: Radiologic exam of the Left hip. Views: 1 view hip with pelvis when performed. COMPARISON: CT chest abdpel w/*[id number] 05/25/2022 10:32 PM FINDINGS: Bones/joints: Left hip arthroplasty. Satisfactory alignment. No sign of loosening. No bone erosion. No acute fracture. There are healed fractures of the right pubic rami. Soft tissues: There is trace soft tissue gas lateral to the left femur. Vascular calcification is present. XR/XR hip LT 1V wo/w pel [id number] IMPRESSION: Expected postoperative appearance of the left hip. No apparent complications.
--- NOTE | 2022-05-26 17:20 | ANE.PACU2 ---
Inpatient post-anesthesia follow up: Airway intact: Yes Vital signs: Temperature 97.7 F Pulse Rate 89 Respiratory Rate 18 Blood Pressure 126/93 Pulse Oximetry 90 Oxygen Delivery Me thod Nasal Cannula Oxygen Flow Rate 2 Fraction of Inspir ed Oxygen Hydration adequate: Yes Nausea and vomiting: No Pain level: 1 Mental status: Baseline
[2022-05-26] MEDS: acetaminophen 325 mg Tablet 650 MG PO (18:09)
[2022-05-26] MEDS: sennosides-docusate Tablet 2 TAB PO (18:09)
[2022-05-27] MEDS: enoxaparin 40 mg/0.4 mL Syringe SUBCUT (01:52)
[2022-05-27] MEDS: acetaminophen 325 mg Tablet 650 MG PO ×2 (01:52→10:21)
[2022-05-27 03:57] VITALS: BP 106/54; PULSE 68; RESP 19; TEMP 36.7; O2SAT 97
[2022-05-27] MEDS: ceFAZolin 2,000 MG in sodium chloride 0.9% (plus) 50 ML 100 MG IV ×2 (05:49→12:54)
[2022-05-27 06:00] VITALS: PULSE 71
[2022-05-27 07:11] LABS: Basophils % 0.1 %; Hemoglobin 10.2 g/dL (11.5-15.3); Lymphocytes # 0.5 10^3/uL (0.8-4.8); Lymphocytes % 6.7 %; Mean Corpuscular HGB Conc 32.9 g/dL (30.0-36.0); Mean Corpuscular Hemoglobin 31.2 pg (28.0-34.0); Mean Corpuscular Volume 94.8 fl (81-99); Mean Platelet Volume 9.7 fL (7.4-10.4); Monocytes # 0.5 10^3/uL (0.2-0.9); Monocytes % 7.3 %; Neutrophils # 6.33 10^3/uL (1.8-7.7); Neutrophils % 85.5 %; Nucleated Red Blood Cells % 0 %; Platelet Count 217 10^3/cmm (130-400); Red Blood Count 3.27 10^6/uL (4.1-5.3); Red Cell Distribution Width 13.4 % (12.1-15.1); White Blood Count 7.4 10^3/uL (4.0-10.0)
[2022-05-27 07:32] LABS: Alanine Aminotransferase 22 U/L (0-33); Albumin Level 3.2 g/dL (3.5-5.2); Alkaline Phosphatase 68 U/L (35-105); Aspartate Amino Transferase 37 U/L (0-32); Blood Urea Nitrogen 11 mg/dL (8-23); Calcium 7.8 mg/dL (8.5-10.5); Carbon Dioxide 25 mmol/L (22-29); Chloride 99 mmol/L (98-107); Glucose 111 mg/dL (65-115); Osmolality Calculated 282 mOsm/kg (285-295); Sodium 136 mmol/L (136-145); Total Bilirubin 0.5 mg/dL (0.15-1.2); Total Protein 5.2 g/dL (6.6-8.7)
[2022-05-27 07:34] LABS: Anion Gap 15.3 (5-19); Potassium 3.3 mmol/L (3.5-5.1)
[2022-05-27 07:45] VITALS: BP 144/74; PULSE 70; RESP 17; TEMP 36.9; O2SAT 96
[2022-05-27] MEDS: levothyroxine 50 mcg Tablet PO (08:37)
[2022-05-27] MEDS: sennosides-docusate Tablet 2 TAB PO ×2 (09:49→17:13)
[2022-05-27] MEDS: pantoprazole DR 40 mg Tablet PO (09:50)
[2022-05-27] MEDS: hydroCHLOROthiazide 25 mg Tablet 12.5 MG PO (09:50)
--- NOTE | 2022-05-27 10:34 | PM.PN ---
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, asked RT to wean down oxygen Vitals/I&O/Wt Last Vital Signs Temp 98.5 F 05/27/22 07:45 Pulse 70 05/27/22 07:45 Resp 17 05/27/22 07:45 BP 144/74 05/27/22 07:45 Pulse Ox 96 05/27/22 07:45 O2 Del Method 05/27/22 03:57 O2 Flow Rate 3 05/26/22 20:00 05/26/22 05/27/22 05/27/22 22:59 06:59 14:59 Intake Total 3260 / 3310 410 / 3720 Output Total 1050 / 1050 850 / 1900 550 / 550 Balance 2210 / 2260 -440 / 1820 -550 / -550 Weight last 48 hrs Weight 62.596 kg Physical Exam Narrative: Patient is laying supine No active pain Pleasant and cooperative Currently on 2 L nasal cannula Abdomen soft S1, S2 No audible stridor or wheezing Lower extremity no signs of vascular compromise Clay catheter has been removed Urinary Catheter Management: Clay: Cath Placed During This Visit: yes, but has since been removed by the nurse Reason for Continuing Indwelling Catheter: Decision to DC Catheter Urinary Catheter Date of Insertion: 05/25/22 Urinary Catheter Time of Insertion: 23:20 Date Urinary Catheter Removed: 05/27/22 Time Urinary Catheter Discontinued: 09:10 Data 05/27/22 06:00 05/27/22 06:00 A&P Assessment and plan (1) Hypertension: (2) Closed displaced fracture of left femoral neck: (3) Skin tear: (4) Fall from ground level: (5) Hypokalemia: Plan Postop day 1 Estimated blood loss 200 mL Hemiarthroplasty right hip Continue PT evaluation Patient wants to go to [facility] for rehab 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 manager updated Clay catheter removed Patient is hypertensive adjust antihypertensive regimen Discontinue IV fluids Discontinue Clay catheter Hypoxia perioperative., Wean oxygen to room air patient does not use oxygen at home Full code For pain continue Tylenol for severe pain she does have opioids on board Daily PT Prophylaxis on board Hypokalemia: Repleted She does get hydrochlorothiazide, replenish potassium, Attestations Medical Necessity Statement*: Awaiting placement to rehab Coding Level of Care Code 22910 Diagnoses Hypertension I10 Closed displaced fracture of left femoral neck S72.002A Skin tear Fall from ground level W18.30XA Hypokalemia E87.6
[2022-05-27] MEDS: potassium chloride ER 20 mEq Tablet 40 MEQ PO (11:06)
[2022-05-27] MEDS: multivitamin therapeutic Tablet 1 TAB PO (11:07)
[2022-05-27] MEDS: amlodipine 5 mg Tablet PO (11:30)
[2022-05-27] MEDS: ketorolac 30 mg/mL INJ 15 MG IVP (11:35)
[2022-05-27 14:00] VITALS: PULSE 111
[2022-05-27 15:25] VITALS: BP 126/78; PULSE 80; RESP 19; TEMP 36.4; O2SAT 94
--- NOTE | 2022-05-27 15:51 | PC.OT ---
OT Eval Attempted - Patient did not have pain medicine at time of evaluation so eval was held. Will have a second OT attempt tomorrow.
[2022-05-27 20:00] VITALS: BP 138/81; PULSE 86; RESP 19; TEMP 37.2; O2SAT 92
[2022-05-28] VITALS (9 sets, daily range): BP systolic 102–149; BP diastolic 63–78; PULSE 79–99; RESP 17–19; TEMP 36.7–37.9; O2SAT 92–97
[2022-05-28] MEDS: acetaminophen 325 mg Tablet 650 MG PO ×3 (00:40→18:04)
[2022-05-28] MEDS: enoxaparin 40 mg/0.4 mL Syringe SUBCUT (02:45)
[2022-05-28 05:31] LABS: Anion Gap 10.3 (5-19); Blood Urea Nitrogen 13 mg/dL (8-23); Calcium 7.9 mg/dL (8.5-10.5); Carbon Dioxide 26 mmol/L (22-29); Chloride 101 mmol/L (98-107); Glucose 112 mg/dL (65-115); Osmolality Calculated 279 mOsm/kg (285-295); Potassium 3.3 mmol/L (3.5-5.1); Sodium 134 mmol/L (136-145)
[2022-05-28] MEDS: levothyroxine 50 mcg Tablet PO (08:02)
[2022-05-28] MEDS: amlodipine 5 mg Tablet PO (09:53)
[2022-05-28] MEDS: hydroCHLOROthiazide 25 mg Tablet 12.5 MG PO (09:53)
[2022-05-28] MEDS: sennosides-docusate Tablet 2 TAB PO ×2 (09:53→18:01)
[2022-05-28] MEDS: multivitamin therapeutic Tablet 1 TAB PO (09:54)
[2022-05-28] MEDS: pantoprazole DR 40 mg Tablet PO (09:54)
--- NOTE | 2022-05-28 11:51 | P.PN_ITS ---
Subjective Subjective: No overnight events Potassium replenished Patient is motivated to go to [facility] Vitals/I&O/Wt Last Vital Signs Temp 98.4 F 05/28/22 08:24 Pulse 82 05/28/22 08:40 Resp 18 05/28/22 08:40 BP 132/65 05/28/22 08:24 Pulse Ox 95 05/28/22 08:40 O2 Del Method 05/28/22 08:40 O2 Flow Rate 3 05/26/22 20:00 05/27/22 05/28/22 05/28/22 22:59 06:59 14:59 Intake Total 600 / 2130 480 / 2610 240 / 240 Balance 600 / 1580 480 / 2060 240 / 240 Physical Exam Narrative: Patient is laying supine Eating breakfast Nonfocal neuro exam 1.5 L nasal cannula Abdomen soft Left leg mild edema No vascular compromise No active pain Active chest pain Pleasant cooperative Urinary Catheter Management: Clay: Cath Placed During This Visit: yes, but has since been removed by the nurse Reason for Continuing Indwelling Catheter: Decision to DC Catheter Urinary Catheter Date of Insertion: 05/25/22 Urinary Catheter Time of Insertion: 23:20 Date Urinary Catheter Removed: 05/27/22 Time Urinary Catheter Discontinued: 09:10 Data 05/27/22 06:00 05/28/22 04:02 A&P Assessment and plan (1) Hypokalemia: (2) Hypertension: (3) Closed displaced fracture of left femoral neck: (4) Skin tear: Plan Postop day 2 Patient is doing well Work with PT Awaiting [facility] placement Hypokalemia: Repleted Hypoxia postoperatively wean oxygen to room air DVT prophylaxis on board Hypertension continue regimen Left leg edema No vascular compromise Hemodynamically stable Attestations Medical Necessity Statement*: Continue medical management Coding Level of Care Code 85752 Diagnoses Hypokalemia E87.6 Hypertension I10 Closed displaced fracture of left femoral neck S72.002A Skin tear
--- NOTE | 2022-05-28 12:09 | PC.SOCIAL ---
IMM update Imm updated with patient at bedside. Copy of page 2 provided. Patient verbalized understanding. Copy in chart initialed, dated and timed.
[2022-05-28] MEDS: potassium chloride ER 20 mEq Tablet 40 MEQ PO (13:09)
[2022-05-29] MEDS: enoxaparin 40 mg/0.4 mL Syringe SUBCUT (01:18)
[2022-05-29 06:42] VITALS: BP 152/68; PULSE 88; RESP 18; TEMP 36.7; O2SAT 96
[2022-05-29] MEDS: levothyroxine 50 mcg Tablet PO (07:49)
[2022-05-29 08:04] VITALS: PULSE 84; RESP 18; O2SAT 95
--- NOTE | 2022-05-29 09:33 | P.PN_ITS ---
Subjective Subjective: Patient is awaiting retirement placement No overnight events Pain under control Tolerating her diet Currently on room air Vitals/I&O/Wt Last Vital Signs Temp 98.1 F 05/29/22 06:42 Pulse 84 05/29/22 08:04 Resp 18 05/29/22 08:04 BP 152/68 05/29/22 06:42 Pulse Ox 95 05/29/22 08:04 O2 Del Method 05/29/22 08:04 O2 Flow Rate 3 05/28/22 22:00 05/28/22 05/29/22 05/29/22 22:59 06:59 14:59 Intake Total 480 / 960 Balance 480 / 960 Physical Exam Narrative: Pleasant and cooperative She has been when she could be discharged, she is anticipating to go to [place] I reassured her Nonfocal neuro exam Pain well managed Currently on room air Abdomen soft Endorsing leg cramps Left leg edema S1, S2 Urinary Catheter Management: Clay: Cath Placed During This Visit: yes, but has since been removed by the nurse Reason for Continuing Indwelling Catheter: Decision to DC Catheter Urinary Catheter Date of Insertion: 05/25/22 Urinary Catheter Time of Insertion: 23:20 Date Urinary Catheter Removed: 05/27/22 Time Urinary Catheter Discontinued: 09:10 Data 05/27/22 06:00 05/28/22 04:02 A&P Assessment and plan (1) Hypokalemia: (2) Hypertension: (3) Closed displaced fracture of left femoral neck: (4) Skin tear: (5) Leg edema, left: Plan Hypertension: Added lisinopril Patient is already taking hydrochlorothiazide and amlodipine Hypothyroid continue levothyroxine Status post hip surgery Awaiting retirement placement Patient is having bowel movement every day Continue senna S DVT prophylaxis on board Full code Cardiac diet Continue PT Attestations Medical Necessity Statement*: Discharge likely on Monday to rehab Coding Level of Care Code 86480 Diagnoses Hypokalemia E87.6 Hypertension I10 Closed displaced fracture of left femoral neck S72.002A Skin tear Leg edema, left R60.0
[2022-05-29] MEDS: hydroCHLOROthiazide 25 mg Tablet 12.5 MG PO (10:05)
[2022-05-29] MEDS: pantoprazole DR 40 mg Tablet PO (10:07)
[2022-05-29] MEDS: amlodipine 5 mg Tablet PO (10:08)
[2022-05-29] MEDS: multivitamin therapeutic Tablet 1 TAB PO (10:08)
[2022-05-29 14:00] VITALS: PULSE 88
[2022-05-29 15:00] VITALS: BP 132/60
[2022-05-29 18:27] VITALS: BP 130/70; PULSE 89; RESP 18; TEMP 36.5; O2SAT 94
[2022-05-29 20:49] VITALS: BP 135/54; PULSE 91; RESP 20; TEMP 36.8; O2SAT 95
[2022-05-30 00:58] VITALS: BP 152/54; PULSE 90; RESP 20; TEMP 37.2; O2SAT 96
[2022-05-30] MEDS: enoxaparin 40 mg/0.4 mL Syringe SUBCUT (02:36)
[2022-05-30 05:22] VITALS: BP 149/69; PULSE 83; RESP 20; TEMP 37; O2SAT 95
[2022-05-30 05:40] LABS: Basophils % 0.7 %; Eosinophils # 0.2 10^3/uL (0.0-0.8); Eosinophils % 2.6 %; Hematocrit 29.2 % (37.0-47.0); Hemoglobin 9.2 g/dL (11.5-15.3); Lymphocytes # 1.1 10^3/uL (0.8-4.8); Lymphocytes % 19.8 %; Mean Corpuscular HGB Conc 31.5 g/dL (30.0-36.0); Mean Corpuscular Hemoglobin 30.5 pg (28.0-34.0); Mean Corpuscular Volume 96.7 fl (81-99); Mean Platelet Volume 9.5 fL (7.4-10.4); Monocytes # 0.6 10^3/uL (0.2-0.9); Monocytes % 10.9 %; Neutrophils # 3.71 10^3/uL (1.8-7.7); Neutrophils % 64.9 %; Nucleated Red Blood Cells % 0 %; Platelet Count 245 10^3/cmm (130-400); Red Blood Count 3.02 10^6/uL (4.1-5.3); Red Cell Distribution Width 13.4 % (12.1-15.1); White Blood Count 5.7 10^3/uL (4.0-10.0)
[2022-05-30 06:04] LABS: Anion Gap 12.3 (5-19); Blood Urea Nitrogen 17 mg/dL (8-23); Calcium 8.2 mg/dL (8.5-10.5); Carbon Dioxide 27 mmol/L (22-29); Chloride 101 mmol/L (98-107); Glucose 103 mg/dL (65-115); Osmolality Calculated 286 mOsm/kg (285-295); Potassium 3.3 mmol/L (3.5-5.1); Sodium 137 mmol/L (136-145)
[2022-05-30 08:26] VITALS: BP 160/79; PULSE 78; RESP 18; TEMP 36.9; O2SAT 96
[2022-05-30] MEDS: lisinopril 10 mg Tablet PO (08:55)
[2022-05-30] MEDS: multivitamin therapeutic Tablet 1 TAB PO (08:56)
[2022-05-30] MEDS: amlodipine 5 mg Tablet PO (08:56)
[2022-05-30] MEDS: hydroCHLOROthiazide 25 mg Tablet 12.5 MG PO (08:56)
[2022-05-30] MEDS: pantoprazole DR 40 mg Tablet PO (08:56)
[2022-05-30] MEDS: levothyroxine 50 mcg Tablet PO (08:56)
[2022-05-30] MEDS: sennosides-docusate Tablet 2 TAB PO (08:57)
[2022-05-30 09:27] VITALS: PULSE 78; O2SAT 98
[2022-05-30 10:41] LABS: SARS Covid-2 Antigen negative (Negative)
--- NOTE | 2022-05-30 10:45 | P.DS_ITS ---
Discharge Providers Date of Admission: 05/25/22 23:11 Date of Discharge: May 30, 2022 Attending Provider at Admission: Ella Sullivan MD Attending Provider at Discharge: Jeanie Perdomo MD Primary Care Provider: Dipika Tolbert MD Diagnoses at Discharge Discharge Diagnosis (1) Hypokalemia: Status: Acute (2) Hypertension: Status: Acute (3) Closed displaced fracture of left femoral neck: Status: Acute (4) Skin tear: Status: Acute (5) Leg edema, left: Status: Acute Reason for Visit Reason for Visit: FALL Hospital Course Hospital Course 87-year-old female who presented to the hospital with hip pain, she was diagnosed with hip fracture, Dr. Ba was consulted, status post left hip hemiarthroplasty 05/26, no perioperative complications, patient did very well throughout her hospitalization: She wants to go to [facility], senior case manager was consulted. Clay catheter was removed patient did very well with physical therapy, pain under control no postoperative complications. Patient will get aspirin for DVT prophylaxis Physical Exam Narrative: Very pleasant and cooperative elderly female Abdomen soft Left leg edema slightly better Currently doing well on room air S1, S2 Abdomen soft discharge 15 awake and alert Urinary Catheter Management: Clay: Cath Placed During This Visit: yes, but has since been removed by the nurse Reason for Continuing Indwelling Catheter: Decision to DC Catheter Urinary Catheter Date of Insertion: 05/25/22 Urinary Catheter Time of Insertion: 23:20 Date Urinary Catheter Removed: 05/27/22 Time Urinary Catheter Discontinued: 09:10 Discharge Data Studies Completed and Pending Completed Studies During Hospitalization Category Date Time Status CT cervical spin wo con* [id number] Stat Cat Scan 05/25/22 21:[address] chest abdpel w/*[id number] Stat Cat Scan 05/25/22 21:[address] head wo con* [id number] Stat Cat Scan 05/25/22 21:54 Completed XR hip LT 1V wo/w pel [id number] Routine Exams 05/26/22 15:38 Completed XR hip LT 2-3V wo/w pel* [id number] Stat Exams 05/25/22 21:54 [place] [id number] Stat Exams 05/25/22 21:54 Completed Radiology Impressions Cervical Spine CT 05/25/22 21:54 IMPRESSION: No acute fracture or subluxations. Chest/Abdomen/Pelvis CT 05/25/22 21:54 IMPRESSION: 1. No significant chest findings. 2. Chronic T11 fracture IMPRESSION: 1. Acute or recent left femoral neck fracture. 2. Bilateral adrenal adenomas. 3. Other chronic findings as described. COMMENTS: Consistent with the [employer]'s Incidental Findings Committee white paper (J Am Danyelle Radiol 2018): Any incidental renal lesion less than 1 cm or classified as too small to characterize, or any incidental cystic renal lesion characterized as simple-appearing, is likely benign. No follow-up imaging is recommended for these lesions per consensus recommendations based on imaging criteria. Head CT 05/25/22 21:54 IMPRESSION: No acute intracranial pathology. Hip/Pelvis X-Ray 05/25/22 21:54 IMPRESSION: 1. Left hip basicervical fracture with impaction. 2. Scattered vascular calcifications. Humerus X-Ray 05/25/22 21:54 IMPRESSION: 1. Negative for fracture or dislocation. 2. Severe glenohumeral joint osteoarthritis. Hip X-Ray 05/26/22 15:38 IMPRESSION: Expected postoperative appearance of the left hip. No apparent complications. Laboratory Results WBC 5.7 10^3/uL (4.0-10.0) 05/30/22 05: RBC 3.02 10^6/uL (4.1-5.3) L 05/30/22 05:23 Hgb 9.2 g/dL (11.5-15.3) L 05/30/22 05:23 Hct 29.2 % (37.0-47.0) L 05/30/22 05:23 MCV 96.7 fl (81-99) 05/30/22 05:23 MCH 30.5 pg (28.0-34.0) 05/30/22 05: MCHC 31.5 g/dL (30.0-36.0) 05/30/22 05: RDW 13.4 % (12.1-15.1) 05/30/22 05:23 Plt Count 245 10^3/cmm (130-400) 05/30/22 05:23 MPV 9.5 fL (7.4-10.4) 05/30/22 05: Neut % (Auto) 64.9 % 05/30/22 05:23 Lymph % (Auto) 19.8 % 05/30/22 05:23 [place] % (Auto) 10.9 % 05/30/22 05:23 Eos % (Auto) 2.6 % 05/30/22 05:23 Baso % (Auto) 0.7 % 05/30/22 05:23 Neut # (Auto) 3.71 10^3/uL (1.8-7.7) 05/30/22 05:23 Lymph # (Auto) 1.1 10^3/uL (0.8-4.8) 05/30/22 05:23 [place] # (Auto) 0.6 10^3/uL (0.2-0.9) 05/30/22 05: Eos # (Auto) 0.2 10^3/uL (0.0-0.8) 05/30/22 05: Baso # (Auto) 0.0 10^3/uL (0.0-0.1) 05/30/22 05: Nucleated RBC % (auto) 0 % 05/30/22 05: Nucleated RBCs # 0.0 /100WBC 05/30/22 05:23 Sodium 137 mmol/L (136-145) 05/30/22 05:23 Potassium 3.3 mmol/L (3.5-5.1) L 05/30/22 05:23 Chloride 101 mmol/L (98-107) 05/30/22 05: Carbon Dioxide 27 mmol/L (22-29) 05/30/22 05:23 Anion Gap 12.3 (5-19) 05/30/22 05:23 BUN 17 mg/dL (8-23) 05/30/22 05:23 Creatinine 0.4 mg/dL (0.5-0.9) L 05/30/22 05:23 GFR Calculation Not Reportable 05/30/22 05: Glucose 103 mg/dL (65-115) 05/30/22 05:23 Calculated Osmolality 286 mOsm/kg (285-295) 05/30/22 05:23 Calcium 8.2 mg/dL (8.5-10.5) L 05/30/22 05:23 Total Bilirubin 0.5 mg/dL (0.15-1.2) 02/10/23 06:00 AST 37 U/L (0-32) H 05/27/22 06:00 ALT 22 U/L (0-33) 05/27/22 06:00 Alkaline Phosphatase 68 U/L (35-105) 05/27/22 06:00 Troponin T Baseline 19 ng/L (0-10) H 05/26/22 05:43 Troponin T 120 Minute 18.78 ng/L (0-10) H 05/26/22 07:40 Delta Troponin T -0.22 ABS# (0-10) L 05/26/22 07:40 Troponin T Hi Sens 6Hr 19.57 ng/L (0-10) H 05/26/22 11:08 Troponin T Hi Sens 6Hr Delta 0.57 ng/L (0-12) 05/26/22 11:08 Total Protein 5.2 g/dL (6.6-8.7) L 05/27/22 06:00 Albumin 3.2 g/dL (3.5-5.2) L 05/27/22 06:00 Globulin 2.0 g/dL (1.3-4.6) 05/27/22 06:00 SARS-CoV-2 Ag (Rapid) negative (Negative) 05/30/22 10:08 Vitals Last Vital Signs Temp 98.4 F 05/30/22 08:26 Pulse 78 05/30/22 09:27 Resp 18 05/30/22 08:26 BP 160/79 05/30/22 08:26 Pulse Ox 98 05/30/22 09:27 O2 Del Method 05/30/22 09:27 O2 Flow Rate 3 05/28/22 22:00 Discharge Plan Discharge Patient Disposition: Xfer SNF Condition: Stable Prescriptions: New Stool Softener-Laxative 8.6-50 mg Tablet 2 tab PO BID Qty: 30 0RF amlodipine 5 mg Tablet 5 mg PO DAILY Qty: 30 0RF lisinopril 10 mg Tablet 10 mg PO DAILY Qty: 30 0RF oxycodone 5 mg Tablet 5 mg PO Q4H PRN (Reason: Moderate Pain) Qty: 10 0RF aspirin 325 mg tablet,delayed release (DR/EC) 325 mg PO DAILY Qty: 30 0RF Continued potassium chloride 10 mEq capsule, extended release 10 meq PO DAILY@0930 levothyroxine 50 mcg tablet 50 mcg PO DAILY@07 Centrum Silver Women 8 mg iron-400 mcg-300 mcg Tablet 1 tab PO DAILY@09 Systane Complete bottle 1 drp ophthalmic (eye) TID MDD 3 PRN (Reason: dry eyes) Rx Instructions: 1 drop per eye Discontinued hydrochlorothiazide 12.5 mg tablet 12.5 mg PO DAILY@09 Discharge Orders: Discharge Order (Routine); Ordered 05/30/22 Ordered By: Jeanie Perdomo Referrals: [facility] [Outside] Dipika Tolbert MD [Primary Care Provider] - Patient Instructions: Lisinopril (By mouth) (Prinivil, Zestril), Oxycodone/Acetaminophen (By mouth), Laxative, Stimulant (By mouth) (Dulcolax, EX-Lax, Fleet Bisacodyl,..., Amlodipine (By mouth), Fall Prevention for Older Adults (DC), Chronic Hypertension (DC), Hip Fracture (GEN) Discharge Attestations Time Spent in Discharge Care*: less than 30 min Quality Metrics Clinical Quality Measures [ No reported AMI, CVA or VTE this stay] Coding Level of Care Code Acute Code for Chg Fwd Diagnoses Hypokalemia E87.6 Hypertension I10 Closed displaced fracture of left femoral neck S72.002A Skin tear Leg edema, left R60.0
--- NOTE | 2022-05-30 11:04 | PC.SOCIAL ---
IMM Update pg 2 of IMM updated and reviewed w/ patient. Copy provided and copy dated, initialed and placed in chart.
--- NOTE | 2022-05-30 12:26 | PC.NURSE ---
called report to Sravani Connolly LPN at [facility]
[2022-05-30 15:06] VITALS: PULSE 78; O2SAT 98
== END 2022-05-30 12:45 | disposition skilled nursing facility (03) | DRG 522 ==
LOC: ER 23:11 → MEDSURG 23:42
PROVIDERS: Orthopaedic Surgery; Admitting Provider Student in an Organized Health Care Education/Training Program; Emergency Provider Emergency Medicine; PCP Family Medicine; Visit Provider Internal Medicine
PROC: 0SRS0J9 Replacement of Left Hip Joint, Femoral Surface with Synthetic Substitute, Cemented, Open Approach (ICD-10-PCS; CPT 27125; principal; 2022-05-26 12:30)
DX: S72.092A Other fracture of head and neck of left femur, initial encounter for closed fracture (principal); W18.30XA Fall on same level, unspecified, initial encounter; E87.6 Hypokalemia; I10 Essential (primary) hypertension; E03.9 Hypothyroidism, unspecified; Z88.0 Allergy status to penicillin
CPT/HCPCS: 12002; 36415; 51702; 70450; 71260; 72125; 73060; 73501; 73502; 74177; 80048; 80053; 84484; 85025; 87426; 90471; 90715; 93005; 96372; 96374; 97110; 97116; 97162; 97165; 97530; 97535; 99285; C1776; C9113; J0690; J1100; J1170; J1580; J1650; J1885; J2270; J2405; J2704; J3010; J3490; J7030; Q9967

== ENCOUNTER → 2022-06-14 11:11 | Outpatient (BNVA) | payer MEDICARE, OTHER, SELFPAY | PROVIDERS: PCP Family Medicine; Visit Provider Orthopaedic Surgery | DX: Z96.642 Presence of left artificial hip joint (principal) | CPT/HCPCS: 99024 ==

== ENCOUNTER → 2022-07-21 10:21 | Outpatient (BNVA) | payer OTHER, MEDICARE, SELFPAY | PROVIDERS: PCP Family Medicine; Visit Provider Nurse Practitioner Family | DX: Z96.642 Presence of left artificial hip joint (principal) | CPT/HCPCS: 73502; 99024; 99213 ==

== ENCOUNTER → 2022-08-30 14:02 | Outpatient (BNVA) | payer MEDICARE, OTHER, SELFPAY | PROVIDERS: PCP Family Medicine; Visit Provider Otolaryngology | DX: H61.23 Impacted cerumen, bilateral (principal) | CPT/HCPCS: 69210; 99202 ==

== ENCOUNTER → 2022-10-31 10:45 | Outpatient (BNVA) | payer MEDICARE, OTHER, SELFPAY | PROVIDERS: PCP Family Medicine; Visit Provider Otolaryngology | DX: H61.23 Impacted cerumen, bilateral (principal) | CPT/HCPCS: 69210; 99212 ==

== ENCOUNTER → 2022-11-02 13:23 | Outpatient (BNVA) | payer MEDICARE, OTHER, SELFPAY | PROVIDERS: PCP Family Medicine; Visit Provider Specialist | DX: Z96.642 Presence of left artificial hip joint (principal) | CPT/HCPCS: 73502; 99213 ==

== ENCOUNTER 2022-11-17 05:03 | Inpatient (IN) | payer MEDICARE, OTHER, SELFPAY ==
[2022-11-17] VITALS (7 sets, daily range): BP systolic 135–182; BP diastolic 68–76; PULSE 66–86; RESP 15–18; TEMP 36.6–36.7; O2SAT 96–98; BMI 20.3
--- NOTE | 2022-11-17 05:19 | ED_ITS ---
Documented by User: Sebastián Le MD 11/17/22 05:22 HPI - Fall General: Chief Complaint: Fall Stated Complaint: fall Time Seen by Provider: 11/17/22 05:09 Source: patient Mode of arrival: ambulatory Limitations: no limitations History of Present Illness: 87-year-old female states she went to bed at 8 PM states she got up at 4 AM set up on her bed and was extremely dizzy and fell. She states that she felt like the room was spinning she fell onto her left side she has left hip along with left shoulder pain. She also hit her head and has a headache. She denies loss of consciousness she denies any chest pain. Associated symptoms-after fall: Denies abdominal pain, chest pain, headache(s) or neck pain Review of Systems Const: Denies: fever(s), chills, body aches or change in appetite Eyes: Denies: blurry vision or eye discomfort ENMT: Denies: throat pain or dental pain Card: Denies: chest pain Resp: Denies: dyspnea GI: Denies: abdominal pain, nausea, vomiting or diarrhea Musc: Reports: extremity pain; Denies: neck pain or back pain Skin/Breast: Denies: rash Neuro: Reports: dizziness; Denies: headache(s) PFSH ED PFSH: Medical History Appendicitis Closed displaced fracture of left femoral neck Fall from ground level Hypertension Hypokalemia Leg edema, left Primary osteoarthritis of right knee Skin tear Thyroid disease Surgical History H/O hysterectomy with oophorectomy History of tonsillectomy and adenoidectomy Status post hip hemiarthroplasty Family History Mother Cancer Father Stroke Social History Smoking and tobacco status: never smoked Alcohol intake: never Physical Exam Const: COMMON NORMALS: patient oriented x3 HENMT: COMMON NORMALS: normocephalic; head/scalp not atraumatic (contusion to left forehead) HEAD & SCALP: normocephalic; not atraumatic (contusion to left forehead) Eye: COMMON NORMALS: Equal, round and reactive pupils present and EOMs intact bilaterally PUPIL: Yes Equal, round and reactive pupils present Neck/C-Spine: COMMON NORMALS: full ROM and supple Chest: COMMONS NORMALS: normal inspection of the chest and normal palpation of entire chest wall Resp: COMMON NORMALS: normal respiratory effort, No retractions, No use of accessory muscles and clear to auscultation bilaterally AUSCULTATION: clear to auscultation bilaterally Cardio: COMMON NORMALS: regular rate, regular rhythm and No murmurs present (Cardio) RATE: regular rate RHYTHM: regular rhythm GI: COMMON NORMALS: Normal to inspection, nondistended, normoactive bowel sounds present, Soft to palpation, non-tender and no masses PALPATION: Yes Soft to palpation Extremity: NARRATIVE EXTREMITY EXAM: Tenderness over left hip and left shoulder Neuro: COMMON NORMALS: patient oriented x3, moves all extremities and no focal motor deficits Psych: COMMON NORMALS: mental status grossly normal, Normal thought process present and cooperative THOUGHT PROCESS: Normal thought process present Skin: COMMON NORMALS: no rashes or lesions noted and no wounds GENERAL SKIN EXAM: no rashes or lesions noted Course Vital Signs: Vital signs: Vital Signs Temperature 97.9 F 11/17/22 05:05 Pulse Rate 78 11/17/22 07:07 Respiratory Rate 15 11/17/22 07:07 Blood Pressure 154/73 11/17/22 07:07 Pulse Oximetry 97 11/17/22 07:07 Oxygen Delivery Me thod Room Air 11/17/22 07:07 MDM - Fall Lab Data 11/17/22 05:15 11/17/22 05:[address] 11/17/22 05:22 IMPRESSION: Extracranial superficial soft tissue swelling in the left periorbital/frontal region. No underlying cranial fracture. No acute intracranial abnormality. Hip/Pelvis X-Ray 11/17/22 05:22 IMPRESSION: No acute fracture or dislocation identified. Knee X-Ray 11/17/22 05:22 IMPRESSION: 1. No evidence of acute fracture or dislocation. 2. Osteoarthritic changes. Shoulder X-Ray 11/17/22 05:22 IMPRESSION: 1. No evidence of acute fracture or dislocation. 2. Chronic degenerative changes in the shoulder joint. Cervical Spine CT 11/17/22 05:28 IMPRESSION: 1. No acute fracture or traumatic malalignment identified within the cervical spine. 2. Multilevel degenerative changes in the spine. Head/Neck CTA 11/17/22 05:52 IMPRESSION: No acute intracranial arterial abnormality identified. IMPRESSION: No acute arterial abnormality identified in the neck. REFERENCES: NASCET CRITERIA. The degree of stenosis in the cervical segment of the internal carotid artery is based on NASCET criteria. Normal is no stenosis. Mild is less than 50% stenosis. Moderate is 50-69% stenosis. Severe is 70% to 99% stenosis. Total occlusion is no detectable patent lumen. Laboratory Results WBC 5.6 10^3/uL (4.0-10.0) 11/17/22 05:15 RBC 3.56 10^6/uL (4.1-5.3) L 11/17/22 05:15 Hgb 10.6 g/dL (11.5-15.3) L 11/17/22 05:15 Hct 32.4 % (37.0-47.0) L 11/17/22 05:15 MCV 91.0 fl (81-99) 11/17/22 05:15 MCH 29.8 pg (28.0-34.0) 11/17/22 05:15 MCHC 32.7 g/dL (30.0-36.0) 11/17/22 05:15 RDW 14.7 % (12.1-15.1) 11/17/22 05:15 Plt Count 298 10^3/cmm (130-400) 11/17/22 05:15 MPV 9.2 fL (7.4-10.4) 11/17/22 05:15 Neut % (Auto) 57.9 % 11/17/22 05:15 Lymph % (Auto) 31.1 % 11/17/22 05:15 [place] % (Auto) 7.0 % 11/17/22 05:15 Eos % (Auto) 1.6 % 11/17/22 05:15 Baso % (Auto) 1.1 % 11/17/22 05:15 Neut # (Auto) 3.22 10^3/uL (1.8-7.7) 11/17/22 05:15 Lymph # (Auto) 1.7 10^3/uL (0.8-4.8) 11/17/22 05:15 [place] # (Auto) 0.4 10^3/uL (0.2-0.9) 11/17/22 05:15 Eos # (Auto) 0.1 10^3/uL (0.0-0.8) 11/17/22 05:15 Baso # (Auto) 0.1 10^3/uL (0.0-0.1) 11/17/22 05:15 Nucleated RBC % (auto) 0 % 11/17/22 05:15 Nucleated RBCs # 0.0 /100WBC 11/17/22 05:15 PT 13.00 SECONDS (12.1-14.9) 11/17/22 05:15 INR 0.95 (0.8-1.2) 11/17/22 05:15 Sodium 138 mmol/L (136-145) 11/17/22 05:15 Potassium 4.0 mmol/L (3.5-5.1) 11/17/22 05:15 Chloride 99 mmol/L (98-107) 11/17/22 05:15 Carbon Dioxide 26 mmol/L (22-29) 11/17/22 05:15 Anion Gap 17.0 (5-19) 11/17/22 05:15 BUN 15 mg/dL (8-23) 11/17/22 05:15 Creatinine 0.5 mg/dL (0.5-0.9) 11/17/22 05:15 GFR Calculation Not Reportable 11/17/22 05:15 Glucose 146 mg/dL (65-115) H 11/17/22 05:15 Calculated Osmolality 289 mOsm/kg (285-295) 11/17/22 05:15 Calcium 8.9 mg/dL (8.5-10.5) 11/17/22 05:15 Total Bilirubin 0.3 mg/dL (0.15-1.2) 11/17/22 05:15 AST 20 U/L (0-32) 11/17/22 05:15 ALT 9 U/L (0-33) 11/17/22 05:15 Alkaline Phosphatase 103 U/L (35-105) 11/17/22 05:15 Troponin T Baseline 14 ng/L (0-10) H 11/17/22 05:15 Troponin T 120 Minute 18.62 ng/L (0-10) H 11/17/22 07:08 Delta Troponin T 4.62 ABS# (0-10) 11/17/22 07:08 Total Protein 6.3 g/dL (6.6-8.7) L 11/17/22 05:15 Albumin 3.9 g/dL (3.5-5.2) 11/17/22 05:15 Globulin 2.4 g/dL (1.3-4.6) 11/17/22 05:15 Urine Color Yellow (Yellow) 11/17/22 07:17 Urine Appearance Clear (CLEAR) 11/17/22 07:17 Urine pH 7 (5-7) 11/17/22 07:17 Ur Specific [place] 1.015 (1.005-1.030) 11/17/22 07:17 Urine Protein Neg (Negative) 11/17/22 07:17 Urine Glucose (UA) Norm (Normal) 11/17/22 07:17 Urine Ketones Negative (Negative) 11/17/22 07:17 Urine Blood Neg (Negative) 11/17/22 07:17 Urine Nitrate Negative (Negative) 11/17/22 07:17 Urine Bilirubin Neg (Negative) 11/17/22 07:17 Urine Urobilinogen Norm mg/dL (Negative) 11/17/22 07:17 Ur Leukocyte Esterase Negative (Negative) 11/17/22 07:17 Discharge Plan Discharge Patient Disposition: Placed in Observation Clinical Impression: Elevated troponin I level, Dizziness, Fall Sign Out Sign Out Data: Patient Sign Out occurred on 11/17/22 at 07:02. Patient's care was discussed, and care was transferred from to Suleman Saucedo DO. Coding Level of Care Code ED Job Putter Up And Ticket Preparer for Chg Fwd Documented by User: Suleman Saucedo DO 11/17/22 08:15 HPI - Fall General: Chief Complaint: Fall Stated Complaint: fall Time Seen by Provider: 11/17/22 05:09 [facility] ED PFSH: Medical History Appendicitis Closed displaced fracture of left femoral neck Fall from ground level Hypertension Hypokalemia Leg edema, left Primary osteoarthritis of right knee Skin tear Thyroid disease Surgical History H/O hysterectomy with oophorectomy History of tonsillectomy and adenoidectomy Status post hip hemiarthroplasty Family History Mother Cancer Father Stroke Social History Smoking and tobacco status: never smoked Alcohol intake: never Course Vital Signs: Vital signs: Vital Signs Temperature 97.9 F 11/17/22 05:05 Pulse Rate 78 11/17/22 07:07 Respiratory Rate 15 11/17/22 07:07 Blood Pressure 154/73 11/17/22 07:07 Pulse Oximetry 97 11/17/22 07:07 Oxygen Delivery Me thod Room Air 11/17/22 07:07 MDM - Fall Medical Decision Making Care assumed at change of shift. Patient initially seen by Dr. Le after a fall early hours this morning. She states yesterday was a normal day and she did not have any problems with dizziness [place] to bed around 8 or 8:30 PM after taking her evening medications. 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 This is bilateral. She is also complaining some left hip pain she has bilateral previous arthroplasties both of which appear normal in the x-rays. UA was negative. There is a slight bump in her second troponin although her EKG shows a normal sinus rhythm. She had been at [facility] recently, there in July and discharged home after recovering from a traumatic hip fracture in early May. patient reports severe dizziness even with elevation of the bed to 30 to 40 degrees. She will be left supine. Discussed Dr. Bolton will admit for elevated troponin possible posterior stroke versus labyrinthitis as well as severe generalized weakness. Patient is anticipating needing to go back to the retirement. Medical Records I reviewed the patient's medical records. Lab Data I reviewed the patient's lab results. 11/17/22 05:15 11/17/22 05:[address] 11/17/22 05:22 IMPRESSION: Extracranial superficial soft tissue swelling in the left periorbital/frontal region. No underlying cranial fracture. No acute intracranial abnormality. Hip/Pelvis X-Ray 11/17/22 05:22 IMPRESSION: No acute fracture or dislocation identified. Knee X-Ray 11/17/22 05:22 IMPRESSION: 1. No evidence of acute fracture or dislocation. 2. Osteoarthritic changes. Shoulder X-Ray 11/17/22 05:22 IMPRESSION: 1. No evidence of acute fracture or dislocation. 2. Chronic degenerative changes in the shoulder joint. Cervical Spine CT 11/17/22 05:28 IMPRESSION: 1. No acute fracture or traumatic malalignment identified within the cervical spine. 2. Multilevel degenerative changes in the spine. Head/Neck CTA 11/17/22 05:52 IMPRESSION: No acute intracranial arterial abnormality identified. IMPRESSION: No acute arterial abnormality identified in the neck. REFERENCES: NASCET CRITERIA. The degree of stenosis in the cervical segment of the internal carotid artery is based on NASCET criteria. Normal is no stenosis. Mild is less than 50% stenosis. Moderate is 50-69% stenosis. Severe is 70% to 99% stenosis. Total occlusion is no detectable patent lumen. Laboratory Results WBC 5.6 10^3/uL (4.0-10.0) 11/17/22 05:15 RBC 3.56 10^6/uL (4.1-5.3) L 11/17/22 05:15 Hgb 10.6 g/dL (11.5-15.3) L 11/17/22 05:15 Hct 32.4 % (37.0-47.0) L 11/17/22 05:15 MCV 91.0 fl (81-99) 11/17/22 05:15 MCH 29.8 pg (28.0-34.0) 11/17/22 05:15 MCHC 32.7 g/dL (30.0-36.0) 11/17/22 05:15 RDW 14.7 % (12.1-15.1) 11/17/22 05:15 Plt Count 298 10^3/cmm (130-400) 11/17/22 05:15 MPV 9.2 fL (7.4-10.4) 11/17/22 05:15 Neut % (Auto) 57.9 % 11/17/22 05:15 Lymph % (Auto) 31.1 % 11/17/22 05:15 [place] % (Auto) 7.0 % 11/17/22 05:15 Eos % (Auto) 1.6 % 11/17/22 05:15 Baso % (Auto) 1.1 % 11/17/22 05:15 Neut # (Auto) 3.22 10^3/uL (1.8-7.7) 11/17/22 05:15 Lymph # (Auto) 1.7 10^3/uL (0.8-4.8) 11/17/22 05:15 [place] # (Auto) 0.4 10^3/uL (0.2-0.9) 11/17/22 05:15 Eos # (Auto) 0.1 10^3/uL (0.0-0.8) 11/17/22 05:15 Baso # (Auto) 0.1 10^3/uL (0.0-0.1) 11/17/22 05:15 Nucleated RBC % (auto) 0 % 11/17/22 05:15 Nucleated RBCs # 0.0 /100WBC 11/17/22 05:15 PT 13.00 SECONDS (12.1-14.9) 11/17/22 05:15 INR 0.95 (0.8-1.2) 11/17/22 05:15 Sodium 138 mmol/L (136-145) 11/17/22 05:15 Potassium 4.0 mmol/L (3.5-5.1) 11/17/22 05:15 Chloride 99 mmol/L (98-107) 11/17/22 05:15 Carbon Dioxide 26 mmol/L (22-29) 11/17/22 05:15 Anion Gap 17.0 (5-19) 11/17/22 05:15 BUN 15 mg/dL (8-23) 11/17/22 05:15 Creatinine 0.5 mg/dL (0.5-0.9) 11/17/22 05:15 GFR Calculation Not Reportable 11/17/22 05:15 Glucose 146 mg/dL (65-115) H 11/17/22 05:15 Calculated Osmolality 289 mOsm/kg (285-295) 11/17/22 05:15 Calcium 8.9 mg/dL (8.5-10.5) 11/17/22 05:15 Total Bilirubin 0.3 mg/dL (0.15-1.2) 11/17/22 05:15 AST 20 U/L (0-32) 11/17/22 05:15 ALT 9 U/L (0-33) 11/17/22 05:15 Alkaline Phosphatase 103 U/L (35-105) 11/17/22 05:15 Troponin T Baseline 14 ng/L (0-10) H 11/17/22 05:15 Troponin T 120 Minute 18.62 ng/L (0-10) H 11/17/22 07:08 Delta Troponin T 4.62 ABS# (0-10) 11/17/22 07:08 Total Protein 6.3 g/dL (6.6-8.7) L 11/17/22 05:15 Albumin 3.9 g/dL (3.5-5.2) 11/17/22 05:15 Globulin 2.4 g/dL (1.3-4.6) 11/17/22 05:15 Urine Color Yellow (Yellow) 11/17/22 07:17 Urine Appearance Clear (CLEAR) 11/17/22 07:17 Urine pH 7 (5-7) 11/17/22 07:17 Ur Specific [place] 1.015 (1.005-1.030) 11/17/22 07:17 Urine Protein Neg (Negative) 11/17/22 07:17 Urine Glucose (UA) Norm (Normal) 11/17/22 07:17 Urine Ketones Negative (Negative) 11/17/22 07:17 Urine Blood Neg (Negative) 11/17/22 07:17 Urine Nitrate Negative (Negative) 11/17/22 07:17 Urine Bilirubin Neg (Negative) 11/17/22 07:17 Urine Urobilinogen Norm mg/dL (Negative) 11/17/22 07:17 Ur Leukocyte Esterase Negative (Negative) 11/17/22 07:17 Discharge Plan Discharge Patient Disposition: Placed in Observation Clinical Impression: Elevated troponin I level, Dizziness, Fall Sign Out Sign Out Data: Patient Sign Out occurred on 11/17/22 at 07:02. Patient's care was discussed, and care was transferred from to Suleman Saucedo DO. Coding Level of Care Code ED Job Putter Up And Ticket Preparer for Rosalinda Hernandez
--- NOTE | 2022-11-17 05:22 | XRR_ITS ---
PROCEDURE INFORMATION: Exam: XR Left Knee Exam date and time: 11/17/2022 6:08 AM Age: 87 years old Clinical indication: Injury or trauma; Fall; Blunt trauma; Knee; Left TECHNIQUE: Imaging protocol: Radiologic exam of the left knee. Views: 3 views. COMPARISON: No relevant prior studies available. FINDINGS: Bones/joints: The medial joint space is mildly narrowed with minimal osteophyte formation. The lateral joint space is mildly narrowed with trace osteophyte formation. Trace osteophytic lipping on the patella. No fracture identified. Soft tissues: No knee joint effusion is present. Calcified atherosclerotic disease. XR/XR knee LT 3V* [id number] IMPRESSION: 1. No evidence of acute fracture or dislocation. 2. Osteoarthritic changes.
--- NOTE | 2022-11-17 05:22 | XRR_ITS ---
PROCEDURE INFORMATION: Exam: XR Left Hip Exam date and time: 11/17/2022 6:03 AM Age: 87 years old Clinical indication: Injury or trauma; Fall; Blunt trauma (contusions or hematomas); Prior surgery; Surgery date: 6+ months; Surgery type: Left hip TECHNIQUE: Imaging protocol: Radiologic exam of the left hip. Views: 2 or 3 views hip with pelvis when performed. COMPARISON: CR XR hip LT 2-3V wo/w pel* [id number] 11/02/2022 1:24 PM FINDINGS: Bones/joints: Left total hip arthroplasty noted. Dystrophic calcifications surrounding the proximal left femur. No acute fracture or dislocation identified. Soft tissues: Unremarkable. Vasculature: Calcified atherosclerotic disease. XR/XR hip LT 2-3V wo/w pel* [id number] IMPRESSION: No acute fracture or dislocation identified.
--- NOTE | 2022-11-17 05:22 | XR_ITS ---
WS: [id number] Portable AP semiupright chest, 11/17/2022 Clinical Data: fall Comparison: PA chest, 02/06/2018 Findings: No nodules, masses or effusions are seen. The heart is normal. The pulmonary vascularity is not increased. No pneumonia or pneumothorax is seen. The aortic arch and descending thoracic aorta s how mild tortuosity and calcification. There is osteoarthritic change of both shoulders. Monitor lead s are on the chest wall. XR/XR chest 1V portable [id number] Impression: Atherosclerosis.
--- NOTE | 2022-11-17 05:22 | XRR_ITS ---
PROCEDURE INFORMATION: Exam: XR Left Shoulder Exam date and time: 11/17/2022 6:00 AM Age: 87 years old Clinical indication: Injury or trauma; Fall; Blunt trauma (contusions or hematomas); Shoulder; Left TECHNIQUE: Imaging protocol: Radiologic exam of the left shoulder. Views: 2 or more views. COMPARISON: [place] [id number] 05/25/2022 10:12 PM FINDINGS: Bones/joints: The glenohumeral and acromioclavicular joints are normally aligned. No acute fracture is seen. Joint space narrowing in the glenohumeral joint with deformity of the humeral head and osteophytic formation. Lungs: Visualized portions of the chest are normal. Soft tissues: Unremarkable. XR/XR shoulder LT min 2V* [id number] IMPRESSION: 1. No evidence of acute fracture or dislocation. 2. Chronic degenerative changes in the shoulder joint.
--- NOTE | 2022-11-17 05:22 | CTR_ITS ---
PROCEDURE INFORMATION: Exam: CT Head Without Contrast Exam date and time: 11/17/2022 5:41 AM Age: 87 years old Clinical indication: Injury or trauma; Fall; Blunt trauma (contusions or hematomas); Consciousness not specified; TECHNIQUE: Imaging protocol: Computed tomography of the head without contrast. Radiation optimization: All CT scans at this facility use at least one of these dose optimization techniques: automated exposure control; mA and/or kV adjustment per patient size (includes targeted exams where dose is matched to clinical indication); or iterative reconstruction. REPORTING DATA: Count of CT and Cardiac NM exams in prior 12 months: This patient has received 3 known CTs and 0 known cardiac nuclear medicine studies in the 12 months prior to the current study. COMPARISON: CT head wo con* [id number] 05/25/2022 10:23 PM RADIATION DOSE METRICS: Total DLP (mGy-cm): 1153.88 FINDINGS: Brain: No acute intracranial hemorrhage identified. No large territorial ischemic infarct. Mild diffuse cerebral atrophy, consistent with patient's age. Subcortical and periventricular white matter hypoattenuation likely consistent with mild chronic microvascular ischemic disease. Cerebral ventricles: The ventricles are within normal limits. Paranasal sinuses: The visualized sinuses are unremarkable. Mastoid air cells: The visualized mastoid air cells are well aerated. Bones/joints: The osseous structures are intact. Soft tissues: Extracranial superficial soft tissue swelling in the left periorbital/frontal region. CT/CT head wo con* [id number] IMPRESSION: Extracranial superficial soft tissue swelling in the left periorbital/frontal region. No underlying cranial fracture. No acute intracranial abnormality.
--- NOTE | 2022-11-17 05:23 | ECG_ITS ---
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 Measurements Intervals [place] Rate: 69 P: 6 MT: 177 QRS: 27 QRSD: 102 T: 38 QT: 376 QTc: 403 Interpretive Statements SINUS RHYTHM Compared to ECG 05/26/2022 11:46:57 No significant changes Electronically Signed On 11-17-2022 16:02:58 CDT by Brendan Lee M.D. [id number] f
--- NOTE | 2022-11-17 05:28 | CTR_ITS ---
PROCEDURE INFORMATION: Exam: CT Cervical Spine Without Contrast Exam date and time: 11/17/2022 5:44 AM Age: 87 years old Clinical indication: Injury or trauma; Fall; Blunt trauma TECHNIQUE: Imaging protocol: Computed tomography of the cervical spine without contrast. Radiation optimization: All CT scans at this facility use at least one of these dose optimization techniques: automated exposure control; mA and/or kV adjustment per patient size (includes targeted exams where dose is matched to clinical indication); or iterative reconstruction. REPORTING DATA: Count of CT and Cardiac NM exams in prior 12 months: This patient has received 3 known CTs and 0 known cardiac nuclear medicine studies in the 12 months prior to the current study. COMPARISON: CT cervical spin wo con* [id number] 05/25/2022 10:27 PM RADIATION DOSE METRICS: Total DLP (mGy-cm): 147.67 FINDINGS: Bones/joints: The cervical spine demonstrates a mildly straightened lordotic curvature. Grade 1 anterolisthesis of C4 on C5 by approximately 3 mm. The vertebral bodies maintain normal height. No fracture identified. Loss of intervertebral disc height at C5-C6 and C6-C7 with endplate degenerative changes. Multilevel facet arthropathy. Multilevel neural foraminal narrowing. Partially visualized degenerative changes in the left shoulder joint with periarticular fluid and possible osseous loose bodies. Lungs: The visualized lung apices are normal. Soft tissues: No prevertebral soft tissue swelling identified. CT/CT cervical spin wo con* [id number] IMPRESSION: 1. No acute fracture or traumatic malalignment identified within the cervical spine. 2. Multilevel degenerative changes in the spine.
[2022-11-17 05:37] LABS: Basophils # 0.1 10^3/uL (0.0-0.1); Basophils % 1.1 %; Eosinophils # 0.1 10^3/uL (0.0-0.8); Eosinophils % 1.6 %; Hematocrit 32.4 % (37.0-47.0); Hemoglobin 10.6 g/dL (11.5-15.3); Lymphocytes # 1.7 10^3/uL (0.8-4.8); Lymphocytes % 31.1 %; Mean Corpuscular HGB Conc 32.7 g/dL (30.0-36.0); Mean Corpuscular Hemoglobin 29.8 pg (28.0-34.0); Mean Platelet Volume 9.2 fL (7.4-10.4); Monocytes # 0.4 10^3/uL (0.2-0.9); Neutrophils # 3.22 10^3/uL (1.8-7.7); Neutrophils % 57.9 %; Nucleated Red Blood Cells % 0 %; Platelet Count 298 10^3/cmm (130-400); Red Blood Count 3.56 10^6/uL (4.1-5.3); Red Cell Distribution Width 14.7 % (12.1-15.1); White Blood Count 5.6 10^3/uL (4.0-10.0)
[2022-11-17 05:49] LABS: Troponin(5th) Baseline 14 ng/L (0-10)
[2022-11-17 05:50] LABS: Alanine Aminotransferase 9 U/L (0-33); Albumin Level 3.9 g/dL (3.5-5.2); Alkaline Phosphatase 103 U/L (35-105); Aspartate Amino Transferase 20 U/L (0-32); Blood Urea Nitrogen 15 mg/dL (8-23); Calcium 8.9 mg/dL (8.5-10.5); Carbon Dioxide 26 mmol/L (22-29); Chloride 99 mmol/L (98-107); Globulin 2.4 g/dL (1.3-4.6); Glucose 146 mg/dL (65-115); Osmolality Calculated 289 mOsm/kg (285-295); Sodium 138 mmol/L (136-145); Total Bilirubin 0.3 mg/dL (0.15-1.2); Total Protein 6.3 g/dL (6.6-8.7)
[2022-11-17 05:52] LABS: INR 0.95 (0.8-1.2)
--- NOTE | 2022-11-17 05:52 | CTR_ITS ---
PROCEDURE INFORMATION: Exam: CTA Head With Contrast, Arteriography Exam date and time: 11/17/2022 6:19 AM Age: 87 years old Clinical indication: Vertigo TECHNIQUE: Imaging protocol: Computed tomographic angiography of the head with contrast. Exam focused on the arteries. 3D rendering (Not supervised by radiologist): MIP and/or 3D reconstructed images were created by the technologist. Radiation optimization: All CT scans at this facility use at least one of these dose optimization techniques: automated exposure control; mA and/or kV adjustment per patient size (includes targeted exams where dose is matched to clinical indication); or iterative reconstruction. Contrast material: OMNI 350; Contrast volume: 100 ml; Contrast route: INTRAVENOUS (IV); REPORTING DATA: Count of CT and Cardiac NM exams in prior 12 months: This patient has received 3 known CTs and 0 known cardiac nuclear medicine studies in the 12 months prior to the current study. COMPARISON: CT head wo con* [id number] 11/17/2022 5:41 AM RADIATION DOSE METRICS: Total DLP (mGy-cm): 375.79 FINDINGS: ANTERIOR CIRCULATION: Right internal carotid artery: Intracranial segment is patent with no significant stenosis. No aneurysm. Right middle cerebral artery: No occlusion or significant stenosis. No aneurysm. Right anterior cerebral artery: No occlusion or significant stenosis. No aneurysm. Left internal carotid artery: Intracranial segment is patent with no significant stenosis. No aneurysm. Left middle cerebral artery: No occlusion or significant stenosis. No aneurysm. Left anterior cerebral artery: No occlusion or significant stenosis. No aneurysm. POSTERIOR CIRCULATION: Right vertebral artery: No occlusion or significant stenosis. No aneurysm. Left vertebral artery: No occlusion or significant stenosis. No aneurysm. Basilar artery: No occlusion or significant stenosis. No aneurysm. Right posterior cerebral artery: No occlusion or significant stenosis. No aneurysm. Left posterior cerebral artery: No occlusion or significant stenosis. No aneurysm. Brain: No definite mass, mass effect, or midline shift. Cerebral ventricles: No ventriculomegaly. Bones/joints: Unremarkable. No acute fracture. Soft tissues: Extracranial periorbital soft tissue swelling in the left periorbital/frontal region. PROCEDURE INFORMATION: Exam: CTA Neck With Contrast Exam date and time: 11/17/2022 6:19 AM Age: 87 years old Clinical indication: Vertigo TECHNIQUE: Imaging protocol: Computed tomographic angiography of the neck with contrast. 3D rendering (Not supervised by radiologist): MIP and/or 3D reconstructed images were created by the technologist. Radiation optimization: All CT scans at this facility use at least one of these dose optimization techniques: automated exposure control; mA and/or kV adjustment per patient size (includes targeted exams where dose is matched to clinical indication); or iterative reconstruction. Contrast material: OMNI 350; Contrast volume: 100 ml; Contrast route: INTRAVENOUS (IV); REPORTING DATA: Count of CT and Cardiac NM exams in prior 12 months: This patient has received 3 known CTs and 0 known cardiac nuclear medicine studies in the 12 months prior to the current study. COMPARISON: CT cervical spin wo con* [id number] 11/17/2022 5:44 AM RADIATION DOSE METRICS: Total DLP (mGy-cm): 375.79 FINDINGS: Right common carotid artery: No stenosis. No dissection or occlusion. Right internal carotid artery: No stenosis of the extracranial segment. No dissection or occlusion. Right external carotid artery: No occlusion or stenosis of the origin. Left common carotid artery: No stenosis. No dissection or occlusion. Left internal carotid artery: No stenosis of the extracranial segment. No dissection or occlusion. Left external carotid artery: No occlusion or stenosis of the origin. Right vertebral artery: No stenosis. No dissection or occlusion. Left vertebral artery: No stenosis. No dissection or occlusion. Soft tissues: Normal. No significant soft tissue swelling. Bones/joints: Multilevel degenerative changes in the spine. Grade 1 anterolisthesis of C6 on C7 and C4 on C5. CT/CT angio headneck* [id number] IMPRESSION: No acute intracranial arterial abnormality identified. IMPRESSION: No acute arterial abnormality identified in the neck. REFERENCES: NASCET CRITERIA. The degree of stenosis in the cervical segment of the internal carotid artery is based on NASCET criteria. Normal is no stenosis. Mild is less than 50% stenosis. Moderate is 50-69% stenosis. Severe is 70% to 99% stenosis. Total occlusion is no detectable patent lumen.
[2022-11-17] MEDS: iohexol 350 mg/mL 500 mL Btl (per mL) IV (06:22)
--- NOTE | 2022-11-17 07:29 | ECG_ITS ---
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 Measurements Intervals [place] Rate: 71 P: 64 [place]: 192 QRS: 27 QRSD: 100 T: 42 QT: 378 QTc: 412 Interpretive Statements SINUS RHYTHM Compared to ECG 11/17/2022 05:32:42 No significant changes Electronically Signed On 11-17-2022 16:08:56 CDT by Brendan Lee M.D. [email or web address] [id number]
[2022-11-17 07:30] LABS: Add Urine Microscopic? NO; Charge for UA Resulting for Rev
[2022-11-17 07:32] LABS: Bilirubin Urine Neg (Negative); Blood Urine Neg (Negative); Glucose Urine UA Norm (Normal); Ketones Urine Negative (Negative); Leukocyte Esterase Urine Negative (Negative); Nitrate Urine Negative (Negative); Protein Urine Neg (Negative); Specific Gravity, Urine 1.015 (1.005-1.030); Urine Appearance Clear (CLEAR); Urine Color Yellow (Yellow); Urobilinogen Urine Norm (Negative); pH Urine 7 (5-7)
[2022-11-17 07:41] LABS: Troponin 5 2HR 18.62 ng/L (0-10)
[2022-11-17 07:42] LABS: Troponin 5 2HR Delta 4.62 ABS# (0-10)
--- NOTE | 2022-11-17 10:30 | P.HP_ITS ---
Providers/Chief Complaint Admitting Physician: Tristen Bolton MD Primary Care Provider: Dipika Tolbert MD Chief Complaint: fall History of Present Illness Yulia Richard is a 87 year old female who reports that this morning around 4 AM when she got up to urinate she felt significantly dizzy when sitting on the bed. She ultimately fell to the left striking her head and hip. She reports she is still dizzy whenever she raises her head off the bed, but does not have any d izziness when she lays completely still. She denies any double vision. When she does move she feels like the room spins. She denies any illness recently. She does have a history of inner ear difficulty requiring the Darell maneuver for resolution many years ago. No fever, cough, chest discomfort. Denies any focal weakness, or discoordination. Review of Systems General: Reports: 10 or more systems reviewed and unremarkable except in HPI and below Card: Denies: chest pain Resp: Denies: dyspnea GI: Denies: abdominal pain, nausea, vomiting, hematochezia or melena Medications/Allergies Home Medications Medication Instructions Recorded Confirmed Last Taken Type potassium chloride 10 mEq 10 meq PO DAILY@0907/13/20 11/17/22 11/16/22 History capsule,extended release levothyroxine 50 mcg tablet 50 mcg PO DAILY@05/26/22 11/17/22 11/16/22 His tory multivit with 1 tab PO DAILY@05/26/22 11/17/22 11/16/22 History ohofoezh-qzbr-BG-lutein 8 mg iron-400 mcg-300 mcg tablet (Centrum Silver Women) Systane Complete 1 drp ophthalmic (eye) TID PRN dry 05/27/22 11/17/22 2 Days Ago History eyes ~05/25/22 1 lisinopril 10 mg tablet 10 mg PO DAILY #30 tabs 05/30/22 11/17/22 11/16/22 Rx sennosides 8.6 mg-docusate sodium 2 tab PO BID #30 tabs 05/30/22 11/17/22 11/16/22 Rx 50 mg tablet (Stool Softener-Laxative) Allergies Allergy/AdvReac Type Severity Reaction Status Date / Time Penicillins Allergy ALGY-Rash Verified 11/17/22 05:14 PFSH Acute PFSH: Medical History (Updated 11/17/22 @ 10:41 by Tristen Bolton MD) Closed displaced fracture of left femoral neck Constipation Fall from ground level Hypertension Hypokalemia Hypothyroidism Leg edema, left Primary osteoarthritis of right knee Skin tear Thyroid disease Surgical History H/O hysterectomy with oophorectomy History of tonsillectomy and adenoidectomy Status post hip hemiarthroplasty Family History Mother Cancer Father Stroke Social History Smoking and tobacco status: never smoked Alcohol intake: never Vitals/I&O/Wt Last Vital Signs Temp 97.9 F 11/17/22 05:05 Pulse 78 11/17/22 07:07 Resp 15 11/17/22 07:07 BP 154/73 11/17/22 07:07 Pulse Ox 97 11/17/22 07:07 O2 Del Method Room Air 11/17/22 07:07 Weight last 48 hrs Weight 58.967 kg Physical Exam Narrative: General exam is a white female in no distress, reporting dizziness when raising head off the bed. HEENT: Pupils equally round. Large ecchymotic area surrounding the left eye. Oropharynx is clear Neck is supple no lymphadenopathy thyromegaly Cardiovascular regular rate and rhythm with a 2/6 systolic murmur Lungs clear no wheezing or crackles Abdomen is soft nontender positive bowel sounds. No obvious organomegaly exam was deferred Extremities. Hematoma noted left hip. Early bruising left shoulder. Skin no rash Neuro: No obvious focal weakness. No nystagmus. No cerebellar dysfunction on extremities, or drift of extremities noted. Some pain in the left shoulder limiting her ability to reach up. Data 11/17/22 05:15 11/17/22 05:15 Other Labs: INR is normal First troponin 14 with repeat of 18 LFTs normal, calcium and albumin normal UA negative CT head no acute abnormality. Swelling noted periorbital area on the left X-ray of chest which I reviewed demonstrates calcification in the aorta, no infiltrate CTA head and neck no thrombus CT neck no acute fracture, arthritis noted Left knee, left shoulder, hip and pelvis all negative for fracture EKG demonstrates normal sinus rhythm, normal axis, nonspecific ST-T wave changes A&P Assessment and plan (1) Fall: Patient presents with fall, from dizziness. No documented loss of consciousness. Multiple injuries consisting of hematomas left periorbital area, left shoulder, left hip (2) Dizziness: Significant dizziness. This could be secondary to vertigo from inner ear problems that she has had in the past. Cannot completely rule out posterior stroke although thought less likely. In either event she would not be a candidate for tPA, and CTA has been done demonstrating no obvious clot. Monitor on telemetry Check echocardiogram Initiate aspirin 81 mg daily Lipid profile in the morning PT consultation TSH, magnesium ordered If symptomatology does not resolve could consider MRI CBC, CMP tomorrow (3) Elevated troponin I level: Series has been ordered She has no chest pain or ST elevation Echocardiogram (4) Hematoma: Hold any anticoagulation currently Okay to give aspirin daily Repeat exam of these tomorrow as well as CBC (5) Anemia: Anemia panel Stool Hemoccult Initiate Protonix 40 mg daily (6) Hyperglycemia: Check hemoglobin A1c (7) Hypothyroidism: Check TSH Plan Other medical problems as outlined in past medical history Allow natural , discussed in detail with patient SCDs for DVT prophylaxis, anticoagulation contraindicated at this time secondary to hematomas Attestations Medical Necessity Statement*: Will need less than 2 midnight stay for evaluation and treatment of dizziness Diagnoses Fall W19.XXXA Dizziness R42 Elevated troponin I level R77.8 Hematoma T14.8XXA Anemia D64.9 Hyperglycemia R73.9 Hypothyroidism E03.9 Time Spent (min) 57
--- NOTE | 2022-11-17 10:36 | USCV_ITS ---
Yulia Richard Age: 87 Gender: F : 1935 Exam Date: 11/17/2022 13:24 Ordering Phys: Tristen Bolton MD Technologist: Trevon Steen [place]am Location[place] [facility] [place] Indication: Syncope BP: 115 / 80 HR: 73 Rhythm: Sinus Technical Quality: Adequate MEASUREMENTS (Male / Female) Normal Values 2D ECHO LVOT Diameter 2.0 cm LV Ejection Fraction MOD 2C 54.5 % LV Ejection Fraction 2C AL 56.3 % LA Diameter 3.3 cm LA Width 3.3 cm LA Height 5.1 cm RA Width 3.6 cm RA Height 4.5 cm Aorta at Sinotubular Diameter 2.3 cm IVC Diameter 1.6 cm M-MODE Aortic Annulus Diameter 2.8 cm LA Ao Ratio MM 1.2 MV E Point Septal Separation 0.6 cm DOPPLER AV Peak Velocity 176.7 cm/s LVOT Peak Velocity 138.0 cm/s AV Area Cont Eq vti 2.6 cm squared AV Area Cont Eq pk 2.5 cm squared MV Peak Velocity 126.0 cm/s MV Area PHT 3.2 cm squared Mitral E to A Ratio 0.5 MV E' Velocity 53.0 cm/s TR Peak Velocity 306.8 cm/s TR Peak Gradient 37.6 mmHg TR Mean Velocity 219.1 cm/s TR Mean Gradient 22.9 mmHg TR Velocity Time Integral 73.0 cm Right Atrial Pressure 3.0 mmHg Pulmonary Artery Systolic Pressu 40.6 mmHg PV Peak Velocity 116.0 cm/s RV Acceleration Time 0.1 s RV Ejection Time 0.3 s RV AcT/ET 0.4 FINDINGS Left Ventricle Normal left ventricular size, systolic function and wall thickness, with no regional wall motion abnormalities. Grade I diastolic dysfunction (abnormal relaxation filling pattern), normal to mildly elevated filling pressures. Right Ventricle Normal right ventricular size and systolic function. Right ventricular systolic pressure 33 mmHg. Right Atrium Normal right atrial size. Left Atrium Mildly increased left atrial size. Mitral Valve Moderately thickened mitral valve. No mitral valve stenosis. Trace mitral valve regurgitation. Aortic Valve Structurally normal trileaflet aortic valve. No aortic valve stenosis. Trace aortic valve regurgitation. Tricuspid Valve Structurally normal tricuspid valve. No tricuspid valve stenosis. Trace to mild tricuspid valve regurgitation. Pulmonic Valve Structurally normal pulmonic valve. No pulmonary valve stenosis. Trace pulmonary valve regurgitation. Pericardium No pericardial effusion. Aorta Normal size aortic root and proximal ascending aorta. IVC Normal IVC dimension with >50% respiratory change of the inferior vena cava. CONCLUSIONS 1. Normal left ventricular size, systolic function and wall thickness, with no regional wall motion abnormalities. Grade I diastolic dysfunction (abnormal relaxation filling pattern), normal to mildly elevated filling pressures. 2. Trace to mild tricuspid valve regurgitation. 3. Pulmonary artery pressure estimated at 33 mmHg. 4. No prior similar studies to compare. Joi Baca MD (Electronically Signed) Final Date: 17 November 2022 15:29 S
[2022-11-17] MEDS: sodium chloride 0.9% 1,000 ML 100 ML IV ×2 (11:04→20:55)
[2022-11-17 11:16] LABS: Estmated Average Glucose 111; Hemoglobin A1C 5.5 % (4.0-6.0)
--- NOTE | 2022-11-17 11:29 | ECG_ITS ---
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 Measurements Intervals [place] Rate: 75 P: 55 [place]: 199 QRS: 23 QRSD: 110 T: 37 QT: 372 QTc: 418 Interpretive Statements SINUS RHYTHM Compared to ECG 11/17/2022 07:33:03 No significant changes Electronically Signed On 11-17-2022 16:08:12 CDT by Brendan Lee M.D. [id number]
[2022-11-17] MEDS: levothyroxine 50 mcg Tablet PO (11:32)
[2022-11-17 11:33] LABS: Ferritin 59 ng/mL (15-150); Iron 45 ug/dL (37-145); Magnesium 1.9 mg/dL (1.7-2.3); Percent Saturation 13.2 % (20-50); Thyroid Stimulating Hormone 2.81 uIU/mL (0.27-4.20); Total Iron Binding Capacity 339 mcg/dl; Unsaturated Iron Binding 294 ug/dL (112-347); Vitamin B12 793 pg/mL (232-1245)
[2022-11-17 12:00] LABS: Troponin 5 6HR 23.56 ng/L (0-10)
[2022-11-17 12:07] LABS: Troponin 5 6HR Delta 9.56 ng/L (0-12)
[2022-11-17 12:42] LABS: Folate Level < 20.0 ng/mL (4.8-37.3)
--- NOTE | 2022-11-17 14:35 | MR_ITS ---
WS: [id number] MRI HEAD WITHOUT CONTRAST TECHNIQUE: Sagittal T1, T2 axial, T2 axial FLAIR, axial and coronal T1 images, axial susceptibility w eighted imaging, axial diffusion weighted images, and coronal T2 images were obtained. CLINICAL INFORMATION: dizziness COMPARISON: CT 11/17/22 FINDINGS: No evidence of restricted diffusion to suggest acute ischemia. Ventricular system and basal cisterns are patent. Moderate small vessel changes. Small vessel changes in the tuan. Incidental cavum septum pellucidum and vergae. 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 Normal posterior fossa. Mai l vascular flow voids at the skull base. No extra-axial fluid collections. No evidence of mass or mas s effect. Paranasal sinuses and mastoid air cells well aerated. Slight anterolisthesis C3 on C4 and C 4 on C5. No hemosiderin on the susceptibly weighted images. Moderate symmetric atrophy temporal lobes and hippocampal formations. MR/MR head wo con* [id number] IMPRESSION: 1. No evidence of restricted diffusion to suggest acute ischemia. 2. Moderate small vessel changes with moderate parenchymal volume loss. 3. Small vessel changes in the tuan. 4. 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 5. No hemosiderin on the susceptibility weighted images. 6. Mild soft tissue edema overlying the LEFT orbit from recent fall.
[2022-11-17] MEDS: acetaminophen 325 mg Tablet 650 MG PO ×2 (14:44→20:54)
[2022-11-17] MEDS: sennosides-docusate Tablet 2 TAB PO (17:10)
[2022-11-18] VITALS (13 sets, daily range): BP systolic 138–175; BP diastolic 61–82; PULSE 62–82; RESP 16–18; TEMP 36.3–36.9; O2SAT 95–97
[2022-11-18] MEDS: acetaminophen 325 mg Tablet 650 MG PO ×3 (03:55→20:29)
[2022-11-18 04:58] LABS: Basophils # 0.1 10^3/uL (0.0-0.1); Basophils % 1.3 %; Eosinophils % 1.1 %; Hematocrit 26.5 % (37.0-47.0); Hemoglobin 8.4 g/dL (11.5-15.3); Lymphocytes # 0.7 10^3/uL (0.8-4.8); Lymphocytes % 19.2 %; Mean Corpuscular HGB Conc 31.7 g/dL (30.0-36.0); Mean Corpuscular Volume 91.4 fl (81-99); Mean Platelet Volume 9.1 fL (7.4-10.4); Monocytes # 0.4 10^3/uL (0.2-0.9); Monocytes % 10.5 %; Neutrophils # 2.57 10^3/uL (1.8-7.7); Neutrophils % 67.6 %; Nucleated Red Blood Cells % 0 %; Platelet Count 251 10^3/cmm (130-400); Red Cell Distribution Width 14.8 % (12.1-15.1); White Blood Count 3.8 10^3/uL (4.0-10.0)
[2022-11-18 05:16] LABS: Chol HDL Ratio 2.44 mg/dL (0.0-4.40); Cholesterol 161 mg/dL (0-200); HDL Cholesterol 66 mg/dL (60-100); LDL Cholesterol Calculated 85 mg/dL (50-129); LDL HDL Ratio 1.29 RATIO (0.00-3.22); Triglycerides 48 mg/dL (0-150)
[2022-11-18 05:27] LABS: Alanine Aminotransferase 7 U/L (0-33); Albumin Level 2.9 g/dL (3.5-5.2); Alkaline Phosphatase 82 U/L (35-105); Anion Gap 11.6 (5-19); Aspartate Amino Transferase 15 U/L (0-32); Blood Urea Nitrogen 10 mg/dL (8-23); Calcium 7.9 mg/dL (8.5-10.5); Carbon Dioxide 25 mmol/L (22-29); Chloride 105 mmol/L (98-107); Globulin 2.3 g/dL (1.3-4.6); Glucose 102 mg/dL (65-115); Magnesium 1.8 mg/dL (1.7-2.3); Osmolality Calculated 285 mOsm/kg (285-295); Potassium 3.6 mmol/L (3.5-5.1); Sodium 138 mmol/L (136-145); Total Bilirubin 0.5 mg/dL (0.15-1.2); Total Protein 5.2 g/dL (6.6-8.7)
[2022-11-18] MEDS: levothyroxine 50 mcg Tablet PO (06:11)
[2022-11-18] MEDS: sodium chloride 0.9% 1,000 ML 100 ML IV (07:51)
[2022-11-18] MEDS: iron sucrose 200 MG in sodium chloride 0.9% (100 ml) 100 ML 220 MG IV (08:50)
--- NOTE | 2022-11-18 09:37 | P.PN_ITS ---
Subjective Subjective: Yulia reported she was severely dizzy this morning. She reported her hip hurt, shoulder hurt. She was working with physical therapy when I entered the room. She had had her MRI, demonstrating no CVA. I reevaluated her later, and she reported she was a little bit better. Everything still hurt but dizziness was improved after the Darell maneuver provided by physical therapy. Medications: Reviewed: Yes Vitals/I&O/Wt Last Vital Signs Temp 97.9 F 11/18/22 07:44 Pulse 69 11/18/22 07:44 Resp 18 11/18/22 07:44 BP 171/77 11/18/22 07:44 Pulse Ox 96 11/18/22 07:44 O2 Del Method Room Air 11/18/22 07:44 11/17/22 11/18/22 11/18/22 22:59 06:59 14:59 Intake Total 1105 / 1585 1000 / 2585 480 / 480 Balance 1105 / 1585 1000 / 2585 480 / 480 Weight last 48 hrs Weight 58.967 kg Physical Exam Narrative: General exam is a white female in no distress, reporting pain in her hip. Contusion periorbital area on the left Neck is supple no lymphadenopathy thyromegaly Cardiovascular regular rate and rhythm with a 2/6 systolic murmur Lungs clear no wheezing or crackles Abdomen is soft nontender positive bowel sounds. No obvious organomegaly Extremities. Hematoma noted left hip. Hematoma noted left shoulder Skin no rash Neuro: No obvious focal weakness. No nystagmus. No cerebellar dysfunction on extremities, or drift of extremities noted. Data 11/18/22 04:45 11/18/22 04:45 A&P Assessment and plan (1) Fall: Patient presents with fall, from dizziness. No documented loss of consciousness. Multiple injuries consisting of hematomas left periorbital area, left shoulder, left hip Physical therapy is currently evaluating. At high risk for continued falls. Nursing facility placement recommended. (2) Dizziness: Significant dizziness. This could be secondary to vertigo from inner ear problems that she has had in the past. Cannot completely rule out posterior stroke although thought less likely. In either event she would not be a ca ndidate for tPA, and CTA has been done demonstrating no obvious clot. Continue to monitor on telemetry MRI was performed demonstrating no acute CVA Echo was performed demonstrating normal ejection fraction, grade 1 diastolic dysfunction Continue aspirin 81 mg daily Lipid profile in the morning Appreciate PT consultation TSH, magnesium were normal CBC, CMP tomorrow (3) Elevated troponin I level: No evidence of acute NC She has no chest pain or ST elevation Echocardiogram largely normal for age (4) Hematoma: Hold any anticoagulation currently Okay to give aspirin daily CBC repeat again tomorrow (5) Anemia: Anemia panel demonstrates iron deficiency anemia Stool Hemoccult pending Continue Protonix 40 mg daily Iron infusion today, consider repeat tomorrow Hemoglobin has decreased significantly to 8.4. This is likely blood loss into the hematomas. Repeat CBC tomorrow. (6) Hyperglycemia: A1c checked and not elevated (7) Hypothyroidism: TSH normal Plan Other medical problems as outlined in past medical history Allow natural , discussed in detail with patient SCDs for DVT prophylaxis, anticoagulation contraindicated at this time secondary to hematomas Attestations Medical Necessity Statement*: Needs continued hospitalization for further treatment of severe dizziness impairing ambulation by physical therapy as well as close monitoring of hemoglobin with significant blood loss into hematoma, Diagnoses Fall W19.XXXA Dizziness R42 Elevated troponin I level R77.8 Hematoma T14.8XXA Anemia D64.9 Hyperglycemia R73.9 Hypothyroidism E03.9 Time Spent (min) 37
[2022-11-18] MEDS: aspirin 81 mg EC Tablet PO (09:55)
[2022-11-18] MEDS: pantoprazole DR 40 mg Tablet PO (09:55)
[2022-11-18] MEDS: potassium chloride ER 10 mEq Tablet PO (09:55)
[2022-11-18] MEDS: sennosides-docusate Tablet 2 TAB PO ×2 (09:56→17:30)
[2022-11-18] MEDS: lisinopril 10 mg Tablet PO (09:58)
[2022-11-19] VITALS (12 sets, daily range): BP systolic 150–184; BP diastolic 61–88; PULSE 62–85; RESP 16–20; TEMP 36.4–36.7; O2SAT 97–98
[2022-11-19 03:09] LABS: Basophils % 0.8 %; Eosinophils # 0.1 10^3/uL (0.0-0.8); Eosinophils % 2.5 %; Hematocrit 27.1 % (37.0-47.0); Hemoglobin 8.8 g/dL (11.5-15.3); Lymphocytes % 20.3 %; Mean Corpuscular HGB Conc 32.5 g/dL (30.0-36.0); Mean Corpuscular Hemoglobin 29.7 pg (28.0-34.0); Mean Corpuscular Volume 91.6 fl (81-99); Mean Platelet Volume 9.6 fL (7.4-10.4); Monocytes # 0.5 10^3/uL (0.2-0.9); Neutrophils # 3.13 10^3/uL (1.8-7.7); Neutrophils % 64.8 %; Nucleated Red Blood Cells % 0 %; Platelet Count 237 10^3/cmm (130-400); Red Blood Count 2.96 10^6/uL (4.1-5.3); Red Cell Distribution Width 15.1 % (12.1-15.1); White Blood Count 4.8 10^3/uL (4.0-10.0)
[2022-11-19 03:33] LABS: Anion Gap 10.9 (5-19); Blood Urea Nitrogen 9 mg/dL (8-23); Calcium 7.9 mg/dL (8.5-10.5); Carbon Dioxide 26 mmol/L (22-29); Chloride 108 mmol/L (98-107); Glucose 93 mg/dL (65-115); Osmolality Calculated 290 mOsm/kg (285-295); Potassium 3.9 mmol/L (3.5-5.1); Sodium 141 mmol/L (136-145)
[2022-11-19] MEDS: levothyroxine 50 mcg Tablet PO (06:21)
[2022-11-19] MEDS: pantoprazole DR 40 mg Tablet PO (09:37)
[2022-11-19] MEDS: potassium chloride ER 10 mEq Tablet PO (09:37)
[2022-11-19] MEDS: aspirin 81 mg EC Tablet PO (09:37)
[2022-11-19] MEDS: lisinopril 10 mg Tablet PO (09:38)
[2022-11-19] MEDS: sennosides-docusate Tablet 2 TAB PO ×2 (09:38→17:52)
[2022-11-19] MEDS: amlodipine 10 mg Tablet PO (10:19)
--- NOTE | 2022-11-19 15:25 | PM.PN ---
Subjective Subjective: Hospital course, labs appreciated. Examination patient sitting up in chair. Denies any nausea, ting, headache. Saturating well on room air. Complains of dizziness though states is better after working with physical therapy. Denies any aggravation of dizziness on moving her head from one side to another. Denies any changes in vision. Blood work states stable hemoglobin of 8.8, stable CMP. Medications: Reviewed: Yes Vitals/I&O/Wt Last Vital Signs Temp 97.5 F L 11/19/22 11:49 Pulse 77 11/19/22 12:00 Resp 18 11/19/22 12:00 BP 184/76 11/19/22 10:09 Pulse Ox 98 11/19/22 11:49 O2 Del Method Room Air 11/19/22 11:49 11/19/22 11/19/22 11/19/22 06:59 14:59 22:59 Intake Total 720 / 720 Balance 720 / 720 Physical Exam Narrative: General exam is a white female in no distress, periorbital contusion on left complaining of dizziness Neck is supple no lymphadenopathy thyromegaly Cardiovascular regular rate and rhythm with a 2/6 systolic murmur Lungs clear no wheezing or crackles Abdomen is soft nontender positive bowel sounds. No obvious organomegaly Extremities. Hematoma noted left hip. Hematoma noted left shoulder Skin no rash Neuro: No obvious focal weakness. No nystagmus. No cerebellar dysfunction on extremities, or drift of extremities noted. Data 11/19/22 02:38 11/19/22 02:38 Micro: Microbiology 11/19/22 05:52 Occult Blood (FIT) - Final Stool Routine Collection A&P Assessment and plan (1) Fall: Mechanical in setting of dizziness. Multiple imaging appreciated. PT evaluation and management. Patient is at high risk of fall given ongoing dizziness and advanced age. Patient would benefit with SNF placement. Case management working on the same. Multiple injuries consisting of hematomas left periorbital area, left shoulder, left hip (2) Dizziness: Significant dizziness. Most likely BPPV. CVA ruled out with a negative MRI and CTA head and neck. Appreciate PT evaluation. Echocardiogram shows a normal EF with grade 1 diastolic dysfunction. Start on meclizine 25 mg 3 times daily as needed. Check orthostatic blood pressures. Appreciate lipid panel, A1c. Continue with aspirin, statin. (3) Elevated troponin I level: No evidence of acute [place] She has no chest pain or ST elevation Echocardiogram largely normal for age (4) Anemia: Anemia most likely in setting of hematoma post fall. Iron panel panel demonstrates mild iron deficiency anemia. Vitamin B12, folate level appreciated. Continue with oral iron supplementation every other day. Monitor hemoglobin daily. (5) Hematoma: Hold any anticoagulation currently Okay to give aspirin daily CBC repeat again tomorrow (6) Hyperglycemia: A1c normal. (7) Hypothyroidism: TSH normal Plan Hypertension: Goal blood pressure less than 140/90 mmHg. Patient takes lisinopril 10 mg oral daily at home. Blood pressure elevated. Add amlodipine 10 mg oral daily. Will uptitrate medications as for goal blood pressures. Check orthostatic blood pressures with ongoing dizziness. Other medical problems as outlined in past medical history Allow natural , discussed in detail with patient SCDs for DVT prophylaxis, anticoagulation contraindicated at this time secondary to hematomas Regular diet Attestations Medical Necessity Statement*: Requires further hospitalization for management of significant dizziness leading to mechanical fall with significant contusion in an elderly, anemia while safe discharge planning is sought Diagnoses Fall W19.XXXA Dizziness R42 Elevated troponin I level R77.8 Anemia D64.9 Hematoma T14.8XXA Hyperglycemia R73.9 Hypothyroidism E03.9
[2022-11-19] MEDS: meclizine 25 mg tablet PO (17:52)
[2022-11-20] VITALS (10 sets, daily range): BP systolic 94–171; BP diastolic 53–75; PULSE 60–80; RESP 16–20; TEMP 36.1–36.6; O2SAT 97–98
[2022-11-20] MEDS: meclizine 25 mg tablet PO ×3 (01:58→20:25)
[2022-11-20 03:32] LABS: Basophils % 0.8 %; Eosinophils # 0.1 10^3/uL (0.0-0.8); Eosinophils % 2.1 %; Hematocrit 27.9 % (37.0-47.0); Hemoglobin 8.8 g/dL (11.5-15.3); Lymphocytes # 1.2 10^3/uL (0.8-4.8); Mean Corpuscular HGB Conc 31.5 g/dL (30.0-36.0); Mean Corpuscular Hemoglobin 29.4 pg (28.0-34.0); Mean Corpuscular Volume 93.3 fl (81-99); Monocytes # 0.5 10^3/uL (0.2-0.9); Neutrophils # 3.28 10^3/uL (1.8-7.7); Neutrophils % 63.3 %; Nucleated Red Blood Cells % 0 %; Platelet Count 262 10^3/cmm (130-400); Red Blood Count 2.99 10^6/uL (4.1-5.3); Red Cell Distribution Width 15.2 % (12.1-15.1); White Blood Count 5.2 10^3/uL (4.0-10.0)
[2022-11-20 05:56] LABS: Alanine Aminotransferase 7 U/L (0-33); Albumin Level 3.1 g/dL (3.5-5.2); Alkaline Phosphatase 83 U/L (35-105); Aspartate Amino Transferase 15 U/L (0-32); Blood Urea Nitrogen 11 mg/dL (8-23); Calcium 8.1 mg/dL (8.5-10.5); Carbon Dioxide 26 mmol/L (22-29); Chloride 106 mmol/L (98-107); Globulin 2.1 g/dL (1.3-4.6); Glucose 92 mg/dL (65-115); Osmolality Calculated 289 mOsm/kg (285-295); Sodium 140 mmol/L (136-145); Total Bilirubin 0.3 mg/dL (0.15-1.2); Total Protein 5.2 g/dL (6.6-8.7)
[2022-11-20] MEDS: levothyroxine 50 mcg Tablet PO (06:16)
[2022-11-20] MEDS: lisinopril 10 mg Tablet PO (09:17)
[2022-11-20] MEDS: aspirin 81 mg EC Tablet PO (09:17)
[2022-11-20] MEDS: pantoprazole DR 40 mg Tablet PO (09:17)
[2022-11-20] MEDS: potassium chloride ER 10 mEq Tablet PO (09:17)
[2022-11-20] MEDS: sennosides-docusate Tablet 2 TAB PO ×2 (09:17→17:27)
[2022-11-20] MEDS: amlodipine 10 mg Tablet PO (09:17)
--- NOTE | 2022-11-20 11:38 | PC.SOCIAL ---
IMM update IMM updated with patient. Verbalized an understanding. Copy Pg 2 provided. Initialled, dated, timed, and placed in chart.
[2022-11-20] MEDS: acetaminophen 325 mg Tablet 650 MG PO ×2 (12:54→20:25)
--- NOTE | 2022-11-20 13:15 | P.PN_ITS ---
Subjective Subjective: No acute events overnight. Patient has remained hemodynamically stable and afebrile. Blood pressure is better controlled. Hemoglobin stable. Complaining of persistent dizziness. States meclizine did not help dizziness at all. Medications: Reviewed: Yes Vitals/I&O/Wt Last Vital Signs Temp 96.9 F L 11/20/22 11:51 Pulse 79 11/20/22 11:51 Resp 20 H 11/20/22 11:51 BP 146/67 11/20/22 11:51 Pulse Ox 97 11/20/22 11:51 O2 Del Method Room Air 11/20/22 11:51 11/19/22 11/20/22 11/20/22 22:59 06:59 14:59 Intake Total 360 / 1080 150 / 1230 720 / 720 Balance 360 / 1080 150 / 1230 720 / 720 Physical Exam Narrative: General exam is a white female in no distress, periorbital contusion on left complaining of dizziness Neck is supple no lymphadenopathy thyromegaly Cardiovascular regular rate and rhythm with a 2/6 systolic murmur Lungs clear no wheezing or crackles Abdomen is soft nontender positive bowel sounds. No obvious organomegaly Extremities. Hematoma noted left hip. Hematoma noted left shoulder Skin no rash Neuro: No obvious focal weakness. No nystagmus. No cerebellar dysfunction on extremities, or drift of extremities noted. Data 11/20/22 02:37 11/20/22 04:48 Micro: Microbiology 11/19/22 05:52 Occult Blood (FIT) - Final Stool Routine Collection A&P Assessment and plan (1) Fall: Mechanical in setting of dizziness. Multiple imaging appreciated. PT evaluation and management. Patient is at high risk of fall given ongoing dizziness and advanced age. P atient would benefit with SNF placement. Case management working on the same. Multiple injuries consisting of hematomas left periorbital area, left shoulder, left hip (2) Dizziness: Significant dizziness. Most likely BPPV. CVA ruled out with a negative MRI and CTA head and neck. Appreciate PT evaluation. Echocardiogram shows a normal EF with grade 1 diastolic dysfunction. Will request physical therapy to further Darell's maneuver. Check cortisol level. Start on meclizine 25 mg 3 times daily as needed. Orthostatic blood pressures negative. Appreciate lipid panel, A1c. Continue with aspirin, statin. (3) Elevated troponin I level: No evidence of acute CT She has no chest pain or ST elevation Echocardiogram largely normal for age (4) Anemia: Anemia most likely in setting of hematoma post fall. Iron panel panel demonstrates mild iron deficiency anemia. Vitamin B12, folate level appreciated. Continue with oral iron supplementation every other day. Monitor hemoglobin daily. (5) Hematoma: Hold any anticoagulation currently Okay to give aspirin daily CBC repeat again tomorrow (6) Hyperglycemia: A1c normal. (7) Hypothyroidism: TSH normal Plan Hypertension: Goal blood pressure less than 140/90 mmHg. Blood pressure better controlled today. Continue with home dose of lisinopril 10 mg oral daily, amlodipine 10 mg oral daily. Will uptitrate medications as for goal blood pressures. Other medical problems as outlined in past medical history Will hold off on blood work tomorrow morning. Allow natural , discussed in detail with patient SCDs for DVT prophylaxis, anticoagulation contraindicated at this time secondary to hematomas Regular diet Attestations Medical Necessity Statement*: Requires further hospitalization for management of persistent dizziness which puts patient at a higher risk of fall in a patient who is elderly and lives by herself by safe discharge planning is sought. Diagnoses Fall W19.XXXA Dizziness R42 Elevated troponin I level R77.8 Anemia D64.9 Hematoma T14.8XXA Hyperglycemia R73.9 Hypothyroidism E03.9
[2022-11-20 17:34] LABS: Cortisol Random 8.57 ug/dL (2.47-19.5)
[2022-11-21 04:00] VITALS: BP 138/72; PULSE 72; RESP 19; TEMP 36.6; O2SAT 98
[2022-11-21 05:56] VITALS: PULSE 65
[2022-11-21] MEDS: levothyroxine 50 mcg Tablet PO (06:03)
[2022-11-21] MEDS: potassium chloride ER 10 mEq Tablet PO (07:52)
[2022-11-21] MEDS: sennosides-docusate Tablet 2 TAB PO (07:52)
[2022-11-21] MEDS: amlodipine 10 mg Tablet PO (07:53)
[2022-11-21] MEDS: aspirin 81 mg EC Tablet PO (07:53)
[2022-11-21] MEDS: pantoprazole DR 40 mg Tablet PO (07:53)
[2022-11-21] MEDS: meclizine 25 mg tablet PO (07:53)
[2022-11-21] MEDS: ferrous gluconate 324 mg Tablet PO (07:53)
[2022-11-21] MEDS: lisinopril 10 mg Tablet PO (07:53)
[2022-11-21] MEDS: NON-FORMULARY MEDICATION (Multivit-Min-Iron-Fa-Lutein [Centrum Silver Women] 8 mg iron-400 1 EACH PO (07:54)
[2022-11-21 08:00] VITALS: BP 165/73; PULSE 81; RESP 16; TEMP 36.6; O2SAT 99
[2022-11-21 12:00] VITALS: BP 165/63; PULSE 81; RESP 16; TEMP 36.7; O2SAT 99
[2022-11-21 13:13] VITALS: PULSE 85
--- NOTE | 2022-11-21 13:15 | PM.DCS ---
Discharge Providers Date of Admission: 11/17/22 08:18 Date of Discharge: November 21, 2022 Attending Provider at Admission: Tristen Bolton MD Attending Provider at Discharge: Gulilermo Mcelroy MD Primary Care Provider: Dipika Tolbert MD Diagnoses at Discharge Discharge Diagnosis (1) Fall: Status: Acute (2) Dizziness: Status: Acute (3) Elevated troponin I level: Status: Acute (4) Anemia: Status: Acute (5) Hematoma: Status: Acute (6) Hyperglycemia: Status: Acute (7) Hypothyroidism: Status: Acute (8) Hypertension: Status: Acute Reason for Visit Reason for Visit: fall Brief History: History as per HPI: Yulia Richard is a 87 year old female who reports that this morning around 4 AM when she got up to urinate she felt significantly dizzy when sitting on the bed.? She ultimately fell to the left striking her head and hip.? She reports she is still dizzy whenever she raises her head off the bed, but does not have any dizziness when she lays completely still.? She denies any double vision.? When she does move she feels like the room spins.? She denies any illness recently.? She does have a history of inner ear difficulty requiring the Darell maneuver for resolution many years ago.? No fever, cough, chest discomfort.? Denies any focal weakness, or discoordination. Hospital Course Hospital Course Patient was admitted to the hospital further evaluation and management. On admission she was found to have a significant hematoma post fall. Multiple imagings were done which ruled out acute abnormality. Patient did have significant dizziness on admission for which posterior circulation stroke was ruled out with CTA and MRI. Patient continued to have dizziness for which PT was consulted and she underwent Darell's maneuver after which she improved. During hospitalization she was found to have drop in hemoglobin due to hematoma to 8 though it remained stable. She was also found to have extremely elevated high blood pressures for which her antihypertensives were adjusted. Patient underwent multiple Apley's maneuver during hospitalization with PT. Currently she is able to participate well with physical therapy. Safe discharge plan was discussed in detail given advanced age, high risk of fall. Patient verbalized understanding and is agreeable to go to SNF. She has been discharged in hemodynamically stable condition Physical Exam Narrative: General exam is a white female in no distress, periorbital contusion on left complaining of dizziness, no nystagmus Neck is supple no lymphadenopathy thyromegaly Cardiovascular regular rate and rhythm with a 2/6 systolic murmur Lungs clear no wheezing or crackles Abdomen is soft nontender positive bowel sounds. No obvious organomegaly Extremities. Hematoma noted left hip. Hematoma noted left shoulder Skin no rash Neuro: No obvious focal weakness. No nystagmus. No cerebellar dysfunction on extremities, or drift of extremities noted. Discharge Data Studies Completed and Pending Completed Studies During Hospitalization Category Date Time Status CT cervical spin wo con* [id number] Stat Cat Scan 11/17/22 05:[address] head wo con* [id number] Stat Cat Scan 11/17/22 05:22 Completed CTA head neck [CT angio headneck* [id number]] Stat Cat Scan 11/17/22 05:52 Completed XR chest 1V portable [id number] Stat Exams 11/17/22 05:22 Completed XR hip LT 2-3V wo/w pel* [id number] Stat Exams 11/17/22 05:22 Completed XR knee LT 3V* [id number] Stat Exams 11/17/22 05:22 Completed XR shoulder LT min 2V* [id number] Stat Exams 11/17/22 05:22 Completed MR head wo con* [id number] Routine MRI 11/17/22 14:35 Completed CV. echo complete* [id number] Routine Ultrasound 11/17/22 10:36 Completed Pending at discharge Category Date Time Status SARS Covid-2 Antigen Stat Lab 11/21/22 12:34 Received Radiology Impressions Chest X-Ray 11/17/22 05:22 Impression: Atherosclerosis. Head CT 11/17/22 05:22 IMPRESSION: Extracranial superficial soft tissue swelling in the left periorbital/frontal region. No underlying cranial fracture. No acute intracranial abnormality. Hip/Pelvis X-Ray 11/17/22 05:22 IMPRESSION: No acute fracture or dislocation identified. Knee X-Ray 11/17/22 05:22 IMPRESSION: 1. No evidence of acute fracture or dislocation. 2. Osteoarthritic changes. Shoulder X-Ray 11/17/22 05:22 IMPRESSION: 1. No evidence of acute fracture or dislocation. 2. Chronic degenerative changes in the shoulder joint. Cervical Spine CT 11/17/22 05:28 IMPRESSION: 1. No acute fracture or traumatic malalignment identified within the cervical spine. 2. Multilevel degenerative changes in the spine. Head/Neck CTA 11/17/22 05:52 IMPRESSION: No acute intracranial arterial abnormality identified. IMPRESSION: No acute arterial abnormality identified in the neck. REFERENCES: NASCET CRITERIA. The degree of stenosis in the cervical segment of the internal carotid artery is based on NASCET criteria. Normal is no stenosis. Mild is less than 50% stenosis. Moderate is 50-69% stenosis. Severe is 70% to 99% stenosis. Total occlusion is no detectable patent lumen. Head MRI 11/17/22 14:35 IMPRESSION: 1. No evidence of restricted diffusion to suggest acute ischemia. 2. Moderate small vessel changes with moderate parenchymal volume loss. 3. Small vessel changes in the tuan. 4. 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 5. No hemosiderin on the susceptibility weighted images. 6. Mild soft tissue edema overlying the LEFT orbit from recent fall. Echocardiogram: CONCLUSIONS ?1. Normal left ventricular size, systolic function and wall ?thickness, with no regional wall motion abnormalities. Grade I ?diastolic dysfunction (abnormal relaxation filling pattern), ?normal to mildly elevated filling pressures. ?2. Trace to mild tricuspid valve regurgitation. ?3. Pulmonary artery pressure estimated at 33 mmHg. ?4.? No prior similar studies to compare. ?Joi Baca MD ?(Electronically Signed) ?Final Date:? ? ? 17 November 2022 ? 15:29 Laboratory Results WBC 5.2 10^3/uL (4.0-10.0) 11/20/22 02:37 RBC 2.99 10^6/uL (4.1-5.3) L 11/20/22 02:37 Hgb 8.8 g/dL (11.5-15.3) L 11/20/22 02:37 Hct 27.9 % (37.0-47.0) L 11/20/22 02:37 MCV 93.3 fl (81-99) 11/20/22 02:37 MCH 29.4 pg (28.0-34.0) 11/20/22 02:37 MCHC 31.5 g/dL (30.0-36.0) 11/20/22 02:37 RDW 15.2 % (12.1-15.1) H 11/20/22 02:37 Plt Count 262 10^3/cmm (130-400) 11/20/22 02:37 MPV 10.0 fL (7.4-10.4) 11/20/22 02:37 Neut % (Auto) 63.3 % 11/20/22 02:37 Lymph % (Auto) 23.0 % 11/20/22 02:37 [place] % (Auto) 10.0 % 11/20/22 02:37 Eos % (Auto) 2.1 % 11/20/22 02:37 Baso % (Auto) 0.8 % 11/20/22 02:37 Neut # (Auto) 3.28 10^3/uL (1.8-7.7) 11/20/22 02:37 Lymph # (Auto) 1.2 10^3/uL (0.8-4.8) 11/20/22 02:37 [place] # (Auto) 0.5 10^3/uL (0.2-0.9) 11/20/22 02:37 Eos # (Auto) 0.1 10^3/uL (0.0-0.8) 11/20/22 02:37 Baso # (Auto) 0.0 10^3/uL (0.0-0.1) 11/20/22 02:37 Nucleated RBC % (auto) 0 % 11/20/22 02:37 Nucleated RBCs # 0.0 /100WBC 11/20/22 02:37 PT 13.00 SECONDS (12.1-14.9) 11/17/22 05:15 INR 0.95 (0.8-1.2) 11/17/22 05:15 Sodium 140 mmol/L (136-145) 11/20/22 04:48 Potassium 4.0 mmol/L (3.5-5.1) 11/20/22 04:48 Chloride 106 mmol/L (98-107) 11/20/22 04:48 Carbon Dioxide 26 mmol/L (22-29) 11/20/22 04:48 Anion Gap 12.0 (5-19) 11/20/22 04:48 BUN 11 mg/dL (8-23) 11/20/22 04:48 Creatinine 0.5 mg/dL (0.5-0.9) 11/20/22 04:48 GFR Calculation Not Reportable 11/20/22 04:48 Glucose 92 mg/dL (65-115) 11/20/22 04:48 Estimat Average Glucose 111 11/17/22 05:15 Hemoglobin A1c 5.5 % (4.0-6.0) 11/17/22 05:15 Calculated Osmolality 289 mOsm/kg (285-295) 11/20/22 04:48 Calcium 8.1 mg/dL (8.5-10.5) L 11/20/22 04:48 Magnesium 1.8 mg/dL (1.7-2.3) 11/18/22 04:45 Iron 45 ug/dL (37-145) 11/17/22 07:08 TIBC 339 mcg/dl 11/17/22 07:08 % Saturation 13.2 % (20-50) L 11/17/22 07:08 Unsat Iron Binding 294 ug/dL (112-347) 11/17/22 07:08 Ferritin 59 ng/mL (15-150) 11/17/22 07:08 Total Bilirubin 0.3 mg/dL (0.15-1.2) 11/20/22 04:48 AST 15 U/L (0-32) 11/20/22 04:48 ALT 7 U/L (0-33) 11/20/22 04:48 Alkaline Phosphatase 83 U/L (35-105) 11/20/22 04:48 Troponin T Baseline 14 ng/L (0-10) H 11/17/22 05:15 Troponin T 120 Minute 18.62 ng/L (0-10) H 11/17/22 07:08 Delta Troponin T 4.62 ABS# (0-10) 11/17/22 07:08 Troponin T Hi Sens 6Hr 23.56 ng/L (0-10) H 11/17/22 11:20 Troponin T Hi Sens 6Hr Delta 9.56 ng/L (0-12) 11/17/22 11:20 Total Protein 5.2 g/dL (6.6-8.7) L 11/20/22 04:48 Albumin 3.1 g/dL (3.5-5.2) L 11/20/22 04:48 Globulin 2.1 g/dL (1.3-4.6) 11/20/22 04:48 Triglycerides 48 mg/dL (0-150) 11/18/22 04:45 Cholesterol 161 mg/dL (0-200) 11/18/22 04:45 LDL Cholesterol, Calc 85 mg/dL (50-129) 11/18/22 04:45 HDL Cholesterol 66 mg/dL (60-100) 11/18/22 04:45 LDL/HDL Ratio 1.29 RATIO (0.00-3.22) 11/18/22 04:45 Cholesterol/HDL Ratio 2.44 mg/dL (0.0-4.40) 11/18/22 04:45 Vitamin B12 793 pg/mL (232-1245) 11/17/22 07:08 Folate < 20.0 ng/mL (4.8-37.3) 11/17/22 05:15 TSH 2.81 uIU/mL (0.27-4.20) 11/17/22 07:08 Random Cortisol 8.57 ug/dL (2.47-19.5) 11/20/22 16:43 Urine Color Yellow (Yellow) 11/17/22 07:17 Urine Appearance Clear (CLEAR) 11/17/22 07:17 Urine pH 7 (5-7) 11/17/22 07:17 Ur Specific [place] 1.015 (1.005-1.030) 11/17/22 07:17 Urine Protein Neg (Negative) 11/17/22 07:17 Urine Glucose (UA) Norm (Normal) 11/17/22 07:17 Urine Ketones Negative (Negative) 11/17/22 07:17 Urine Blood Neg (Negative) 11/17/22 07:17 Urine Nitrate Negative (Negative) 11/17/22 07:17 Urine Bilirubin Neg (Negative) 11/17/22 07:17 Urine Urobilinogen Norm mg/dL (Negative) 11/17/22 07:17 Ur Leukocyte Esterase Negative (Negative) 11/17/22 07:17 Vitals Last Vital Signs Temp 98.0 F 11/21/22 12:00 Pulse 85 11/21/22 13:13 Resp 16 11/21/22 12:00 BP 165/63 11/21/22 12:00 Pulse Ox 99 11/21/22 12:00 O2 Del Method Room Air 11/21/22 12:00 Discharge Plan Discharge Patient Disposition: Xfer [facility] Condition: Stable Prescriptions: New ferrous gluconate 324 mg (37.5 mg iron) Tablet 324 mg PO EVERY OTHER DAY Qty: 30 0RF meclizine 25 mg Tablet 25 mg PO TID PRN (Reason: Dizziness) Qty: 15 0RF Continued potassium chloride 10 mEq capsule, extended release 10 meq PO DAILY@0930 levothyroxine 50 mcg tablet 50 mcg PO DAILY@07 Centrum Silver Women 8 mg iron-400 mcg-300 mcg Tablet 1 tab PO DAILY@09 Systane Complete bottle 1 drp ophthalmic (eye) TID MDD 3 PRN (Reason: dry eyes) Rx Instructions: 1 drop per eye sennosides-docusate sodium [Stool Softener-Laxative] 8.6-50 mg Tablet 2 tab PO BID Qty: 30 0RF Refresh Relieva 1 - 2 ophthalmic insert eye-both PRN PRN (Reason: Dry Eyes) Rx Instructions: 1-2 drops per eyes Changed lisinopril 10 mg Tablet 20 mg PO DAILY Qty: 30 0RF Discharge Orders: Discharge Order (Routine); Ordered 11/21/22 Ordered By: Guillermo Mcelroy Referrals: Dipika Tolbert MD [Primary Care Provider] - 2 weeks Bautista Canseco MD [Physician] - 4-7 days Discharge Diet: Regular Discharge Activity: Resume usual activity and Increase activity as tolerated Patient Instructions: Opioid Safety Activity Restrictions/Additional Instructions: Follow-up with the ENT at the next available appointment for further evaluation and management of impacted cerumen and dizziness. Dose of lisinopril has been increased to 20 mg daily. Take meclizine as needed for dizziness. Please keep working with physical therapy. Discharge Attestations Time Spent in Discharge Care*: greater than 30 min Specific Discharge Activities: educating patient, discussing with pcp/other providers, discussing with case preparer and liner/social workers/dc planners, documenting/other paperwork and evaluating patient/reviewing data Status at Discharge: Cognitive status at discharge: cognitively intact, Behavioral status at discharge: cooperative, Functional status at discharge: uses cane/walker, Overall status at discharge: patient is progressing back to baseline Quality Metrics Clinical Quality Measures [ No reported AMI, CVA or VTE this stay] Coding Level of Care Code 54826 Total time (in minutes) for Discharge: 50 Diagnoses Fall W19.XXXA Dizziness R42 Elevated troponin I level R77.8 Anemia D64.9 Hematoma T14.8XXA Hyperglycemia R73.9 Hypothyroidism E03.9 Hypertension I10
[2022-11-21 13:45] LABS: SARS Covid-2 Antigen negative (Negative)
[2022-11-21 15:43] VITALS: BP 131/73; PULSE 85; RESP 18; TEMP 36.7
--- NOTE | 2022-11-21 15:54 | PC.PT ---
Pt seen for Darell maneuver x3 this afternoon. Pt had no nystagmus in any head position but defintely had symptoms consistent with BPPV with dizziness with Hallpike test on the left greater than the right. Pt stated she felt better after the third time and had very little dizziness with sitting up. See note in PT section for more specifics. If dizziness persists, Pt may benefit from a referral to outpatient PT to see me in the clinic for vestibular rehab for BPPV.
== END 2022-11-21 15:30 | disposition skilled nursing facility (03) | DRG 149 ==
LOC: ER 07:54 → MEDSURG 10:46
PROVIDERS: Emergency Medicine; Admitting Provider Internal Medicine; Emergency Provider Family Medicine; PCP Family Medicine; Visit Provider Student in an Organized Health Care Education/Training Program
DX: H81.10 Benign paroxysmal vertigo, unspecified ear (principal); S00.12XA Contusion of left eyelid and periocular area, initial encounter; S40.012A Contusion of left shoulder, initial encounter; S70.02XA Contusion of left hip, initial encounter; W18.30XA Fall on same level, unspecified, initial encounter; D50.9 Iron deficiency anemia, unspecified; R73.9 Hyperglycemia, unspecified; E03.9 Hypothyroidism, unspecified; I10 Essential (primary) hypertension; M17.11 Unilateral primary osteoarthritis, right knee; Z96.642 Presence of left artificial hip joint; R77.8 Other specified abnormalities of plasma proteins; Z66 Do not resuscitate
CPT/HCPCS: 36415; 70450; 70496; 70498; 70551; 71045; 72125; 73030; 73502; 73562; 80048; 80053; 80061; 81003; 82274; 82533; 82607; 82728; 82746; 83036; 83540; 83550; 83735; 84443; 84484; 85025; 85610; 87426; 93005; 93306; 97110; 97112; 97116; 97140; 97161; 97530; J1756; J7030; J8597; Q9967

== ENCOUNTER → 2022-12-05 13:36 | Outpatient (BNVA) | payer MEDICARE, OTHER, SELFPAY | PROVIDERS: PCP Family Medicine; Visit Provider Otolaryngology | DX: H81.10 Benign paroxysmal vertigo, unspecified ear (principal) | CPT/HCPCS: 99213 ==

== ENCOUNTER → 2022-12-30 10:28 | Outpatient (BNVA) | payer MEDICARE, OTHER, SELFPAY | PROVIDERS: PCP Family Medicine; Visit Provider Otolaryngology | DX: H81.10 Benign paroxysmal vertigo, unspecified ear (principal) | CPT/HCPCS: 99212 ==